=== PATIENT | female | born 1960 | race Hispanic/Latino ===

== ENCOUNTER 2017-06-13 08:01 | Emergency (ER) | payer MEDICAID, OTHER ==
[2017-06-13 08:01] VITALS: BMI 17.3
--- NOTE | 2017-06-13 08:26 | C.PDOC ---
History Of Present Illness 57 year old female with a PMHx of Stroke, CVA, right hemiplegia, HTN, and slurred speech was referred to the ED from half-way for PEG tube malfunction for unknown duration. prison notes no other associated symptoms. As per old records, 16 Iranian G-Tube was placed in Jan 2017 by NIVIA Burnett. LIMITED DUE TO CLIN COND REFERRED FROM [facility] FOR PEG TUBE MALFXN. UNK DURATION. pmh including stroke/cva/ rt. hemiplegia/htn/slurred speech. NO OTHER ASSOC SX per old records 16 Iranian G-Tube REPLACED 01/[address] BURNETT EXAM NAD NONTOXIC ABD +PEG IN PLACE SOFT NT ND NO R/G SKIN ABD WALL OS CLEAN, NO ERYTHEMA, DC. NEURO CHRONIC SLURRED SPEECH, CONTRACTURES. AO3, INTERACTIVE APPROPRIATE REMAINDER NEG Time Seen by Provider: 06/13/17 08:15 Chief Complaint (Nursing): Medical Clearance History Per: Other (half-way) History/Exam Limitations: clinical condition Current Symptoms Are (Timing): Still Present Reports Recently: Treated By A Physician Recent travel outside of the [place]: No Additional History Per: Prior Records Past Medical History Reviewed: Historical Data, Nursing Documentation, Vital Signs Vital Signs: Last Vital Signs Temp 97.3 F L 06/13/17 08:04 Pulse 96 H 06/13/17 08:04 Resp 14 06/13/17 08:04 BP 102/71 06/13/17 08:04 Pulse Ox 95 06/13/17 10:03 - Medical History PMH: Anxiety, Dementia, Depression, HTN, Hypercholesterolemia, Hyperlipidemia, TIA - [facility] Procedures CHANGE FEEDING DEVICE IN UP INTEST TRACT, BLOWER BLAST FURNACE APPROACH (11/14/16) GAIT TRAINING/FUNCTIONAL AMBULATION TREATMENT USING ORTHOSIS (07/07/16) HOME MANAGEMENT TREATMENT USING ASSIST EQUIPMENT (07/07/16) INSERTION OF FEEDING DEVICE INTO STOMACH, PERC APPROACH (11/14/16) INTRODUCE OTH THROMBOLYTIC IN PERIPH VEIN, PERC (11/14/16) INTRODUCTION OF NUTRITIONAL INTO UP GI, VIA OPENING (11/14/16) THERAPEUTIC EXERCISE TREATMENT OF MUSCULOSK LOW BACK/LE (07/07/16) Family History: States: Unknown Family Hx - Social History Hx Alcohol Use: No Hx Substance Use: No - Immunization History Hx Tetanus Toxoid Vaccination: No Hx Influenza Vaccination: Yes Hx Pneumococcal Vaccination: No Review Of Systems Review Of Systems: ROS cannot be obtained secondary to pt's inabilty to answer questions. (due to patient's clinical condition) Physical Exam - Physical Exam Appears: Non-toxic, No Acute Distress Skin: Warm, Dry, No Rash, Other (abdominal wall is clean, no erythema, no discharge) Head: Atraumatic, No Tenderness Eye(s): bilateral: Normal Inspection, PERRL, EOMI Oral Mucosa: Moist Neck: Supple Chest: Symmetrical, No Deformity Cardiovascular: Rhythm Regular, No Murmur Respiratory: No Rales, No Rhonchi, No Wheezing, Other (clear to auscultation bilaterally) Gastrointestinal/Abdominal: Soft, No Tenderness, No Distention, No Guarding, No Rebound, Other (PEG tube in place) Extremity: Capillary Refill (< 2 seconds) Neurological/Psych: Oriented x3, No Normal Speech (chronic slurred speech), Other (chronic contractures, interactive, and appropriate) ED Course And Treatment O2 Sat by Pulse Oximetry: 95 (RA) Pulse Ox Interpretation: Normal - Physician Consult Information Time Consulting Physician Contacted: 09:05 Physician Contacted: Fazal Bynum Progress - Re-Evaluation Re-evaluation Note: 06/13/17 08:46 PER RN HANSEN PEG +FLUSHES AND WITHDRAWS WO DIFF. NO LEAKAGE W GRAVITY FLUSH. PT TOLERATED WELL D/W [facility] RN: STATES W INTERMIT LEAKING AT PORT SITE WHEN TRIES TO DO FEEDINGS W GRAVITY. LAST FEEDING LAST NIGHT D/W PMD, CONSULT DR BYNUM WILL ADMIT PRN 06/13/17 09:03 D/W DR ANNE C/F DR BYNUM, WILL EVAL IN ER 06/13/17 10:02 SP PEG CHANGE W 16F BY DR ANNE. CLEARED FOR DC TO [facility] 06/13/17 10:04 PMD NOTIFIED - Data Reviewed Data Reviewed: Old records - Continuity of Care Discussed patient case with:: Patient, PMD Discussed pt. case with professional housing consultant/specialty: Gastroenterology Disposition Counseled Patient/Family Regarding: Diagnosis, Need For Followup - Disposition Referrals: Yakov Montgomery MD [Family Provider] - Disposition: HOME/ ROUTINE Disposition Time: 10:02 Condition: IMPROVED Instructions: Percutaneous Endoscopic Gastrostomy Insertion (GEN) Forms: [employer] (Jordanian) - Clinical Impression Clinical Impression: PEG tube malfunction - Scribe Statement The provider has reviewed the documentation as recorded by the Scribe Binta Narvaez All medical record entries made by the Scribe were at my direction and personally dictated by me. I have reviewed the chart and agree that the record accurately reflects my personal performance of the history, physical exam, medical decision making, and the department course for this patient. I have also personally directed, reviewed, and agree with the discharge instructions and disposition.
[2017-06-13 10:07] VITALS: RESP 16; O2SAT 97
--- NOTE | 2017-06-13 10:08 | PCM.PROC ---
Procedures Attestation:: I certify that I have explained the specified Operation(s) or Procedure(s), risks, benefits and reasonable alternatives to the Patient and/or other person responsible. The opportunity was given to ask questions and all questions answered - Feeding Tube Replacement Type of Tube: gastrostomy Insertion Site Prior to Procedure: clean Tube Used for Reinsertion: Bard Eritrean Tube Size (F): 16 Balloon Size (mis): 5 Tube Secured by: attachment device Patient Tolerated Procedure: well, no complications
--- NOTE | 2017-06-13 10:12 | CP.PCM.CON ---
<Corinne Martinez - Last Filed: 06/13/17 10:12> History of Present Illness - History of Present Illness History of Present Illness: GI Fellow PGY4 Consult Note This is a 57yF with a PMHX of HTN, TIA, left basal ganglia/thalamic ischemic stroke that was treated with tPa, and was subsequently complicated by hemorrhagic conversion. Pt ended up having right sided hemiplegia, contractures , aphasia, dysphagia requiring peg tube placement for feeding. Pt had initial feeding tube placed by IR CT guided gastrostomy tube due to difficulty passing EGD scope from mouth contracture even with mouth guard in place. Initial gastrostomy tube placed December 2016 and exchanged at bedside in January 2017 with 16Fr. Pt now sent from [place] with malfunctioning PEG tube with leakage of TF due to tubing breakdown. No signs of infection around PEG site. ROS: Unable to be obtained due to aphasia PMHX: As stated in HPI PSHX: Unable to be obtained due to aphasia SHX: Unable to be obtained due to aphasia FHx: Unable to be obtained due to aphasia Past Patient History - Infectious Disease Hx of Infectious Diseases: None - Tetanus Immunizations Tetanus Immunization: Unknown - Past Medical History & Family History Past Medical History?: Yes - Past Social History Smoking Status: Former Smoker - CARDIAC Hx Hypercholesterolemia: Yes Hx Hypertension: Yes - PULMONARY Hx Chronic Obstructive Pulmonary Disease (COPD): No Hx Pneumonia: No - NEUROLOGICAL Hx Dementia: Yes Hx Transient Ischemic Attacks (TIA): Yes - HEENT Hx HEENT Problems: Yes (wears eyeglasses) - RENAL Hx Chronic Kidney Disease: No - ENDOCRINE/METABOLIC Hx Hypothyroidism: No - HEMATOLOGICAL/ONCOLOGICAL Hx Human Immunodeficiency Virus (HIV): No - INTEGUMENTARY Hx Dermatological Problems: No - MUSCULOSKELETAL/RHEUMATOLOGICAL Hx Arthritis: No Hx Rheumatoid Arthritis: No - GASTROINTESTINAL Hx Gastroesophageal Reflux: No - GENITOURINARY/GYNECOLOGICAL Hx Genitourinary Disorders: No - PSYCHIATRIC Hx Anxiety: Yes Hx Depression: Yes Hx Substance Use: No - SURGICAL HISTORY Hx Surgeries: Yes Other/Comment: G-tube insertion - ANESTHESIA Hx Anesthesia Reactions: No Hx Malignant Hyperthermia: No Meds Allergies/Adverse Reactions: Allergies Allergy/AdvReac Type Severity Reaction Status Date / Time atorvastatin calcium AdvReac PAIN Verified 11/15/16 10:52 [From Lipitor] Physical Exam - Constitutional Appears: Non-toxic, No Acute Distress - Head Exam Head Exam: ATRAUMATIC, NORMAL INSPECTION, NORMOCEPHALIC - Eye Exam Eye Exam: EOMI, Normal appearance, PERRL Pupil Exam: PERRL - ENT Exam ENT Exam: Mucous Membranes Moist, Normal Exam - Neck Exam Neck exam: Positive for: Full Rom - Respiratory Exam Respiratory Exam: Clear to Auscultation Bilateral, NORMAL BREATHING PATTERN - Cardiovascular Exam Cardiovascular Exam: RRR - GI/Abdominal Exam GI & Abdominal Exam: Normal Bowel Sounds, Soft. absent: Organomegaly, Tenderness Additional comments: PEG site clean no erythema - Rectal Exam Rectal Exam: Deferred - Extremities Exam Extremities exam: Positive for: normal inspection. Negative for: pedal edema - Back Exam Back exam: NORMAL INSPECTION - Neurological Exam Neurological exam: Alert - Psychiatric Exam Psychiatric exam: Normal Affect, Normal Mood - Skin Skin Exam: Dry, Intact, Normal Color, Warm Results - Vital Signs Recent Vital Signs: Last Vital Signs Temp 98.0 F 06/13/17 10:06 Pulse 88 06/13/17 10:06 Resp 16 06/13/17 10:06 BP 106/68 06/13/17 10:06 Pulse Ox 97 06/13/17 10:06 Assessment & Plan - Assessment and Plan (Free Text) Assessment: This is a 57yF with pmhx of CVA and dysphagia s/p PEG. 1. PEG tube malfunction Plan: -Pt's PEG tubing had broken down with leakage of tube feedings. No signs of infection or erythema. Pt's PEG was exchanged at bedside with 16Fr with no complications -Can resume tube feedings -Discussed with ER attending -Pt can be discharged back to [facility] from [facility] perspective <Sofy Conde MD - Last Filed: 06/13/17 12:14> Results - Vital Signs Recent Vital Signs: Last Vital Signs Temp 98.0 F 06/13/17 10:06 Pulse 88 06/13/17 10:06 Resp 16 06/13/17 10:06 BP 106/68 06/13/17 10:06 Pulse Ox 97 06/13/17 10:06 Attending/Attestation - Attestation I have personally seen and examined this patient.: Yes I have fully participated in the care of the patient.: Yes I have reviewed all pertinent clinical information: Yes Notes (Text): 06/13/17 12:11 patient seen at bedside. This is a 57 yr old F with PMH of CVA and dysphagia s/ p PEG placement in December 2016 and then PEG exchange in January 2017 now sent from [facility] for PEG malfunction. Tube leakage with PEG changed at bedside with 16 Fr. Resume tube feedings. No induration/ erytyema or infection at site of stoma. Aspiration precautions. Pt can be discharged back to [facility] from GI perspective
[2017-06-13 12:29] VITALS: BP 105/71; PULSE 86; TEMP 97.9
== END 2017-06-13 13:41 | disposition home or self-care (01) ==
LOC: C.ER 08:01
DX: K94.23 Gastrostomy malfunction (principal); Y84.8 Other medical procedures as the cause of abnormal reaction of the patient, or of later complication, without mention of misadventure at the time of the procedure

== ENCOUNTER 2018-04-06 12:04 | Emergency (ER) | payer OTHER ==
[2018-04-06 12:05] VITALS: BMI 17.3
[2018-04-06 13:00] VITALS: O2SAT 97
--- NOTE | 2018-04-06 13:53 | C.PDOC ---
History Of Present Illness 58 y/o female, with PMHx of CVA with right side weakness, is sent to ED from longterm for peg tube replacement. Peg tube was dislodged and gutierrez catheter has been placed temporarily. No other complaints at this time. Time Seen by Provider: 04/06/18 13:22 Chief Complaint (Nursing): GI Problem History Per: Patient History/Exam Limitations: no limitations Past Medical History Reviewed: Historical Data, Nursing Documentation, Vital Signs Vital Signs: Last Vital Signs Temp 97.7 F 04/06/18 12:17 Pulse 82 04/06/18 12:21 Resp 20 04/06/18 12:21 BP 98/69 L 04/06/18 12:21 Pulse Ox 97 04/06/18 12:21 - Medical History PMH: Anemia, Anxiety, Dementia, Depression, HTN, Hypercholesterolemia, Hyperlipidemia, TIA Denies: Arthritis, CHF, COPD, HIV, Hypothyroidism, Pneumonia, Chronic Kidney Disease, Rheumatoid Arthritis - [facility] Procedures CHANGE FEEDING DEVICE IN UP INTEST TRACT, MANAGER LEARNING APPROACH (11/14/16) GAIT TRAINING/FUNCTIONAL AMBULATION TREATMENT USING ORTHOSIS (07/07/16) HOME MANAGEMENT TREATMENT USING ASSIST EQUIPMENT (07/07/16) INSERTION OF FEEDING DEVICE INTO STOMACH, PERC APPROACH (11/14/16) INTRODUCE OTH THROMBOLYTIC IN PERIPH VEIN, PERC (11/14/16) INTRODUCTION OF NUTRITIONAL INTO UP GI, VIA OPENING (11/14/16) THERAPEUTIC EXERCISE TREATMENT OF MUSCULOSK LOW BACK/LE (07/07/16) Family History: States: Unknown Family Hx - Social History Hx Alcohol Use: No Hx Substance Use: No - Immunization History Hx Tetanus Toxoid Vaccination: No Hx Influenza Vaccination: Yes Hx Pneumococcal Vaccination: No Review Of Systems Except As Marked, All Systems Reviewed And Found Negative. Constitutional: Negative for: Fever, Chills Cardiovascular: Negative for: Chest Pain Respiratory: Negative for: Shortness of Breath Gastrointestinal: Negative for: Nausea, Abdominal Pain, Diarrhea Physical Exam - Physical Exam Appears: Non-toxic, No Acute Distress, Chronically Ill, Other (white thin female) Skin: Normal Color, Warm, Dry Head: Atraumatic, Normacephalic Eye(s): bilateral: Normal Inspection Oral Mucosa: Moist Neck: Normal ROM, Supple Cardiovascular: Rhythm Regular, No Murmur Respiratory: Normal Breath Sounds, No Rales, No Rhonchi, No Wheezing Gastrointestinal/Abdominal: Soft, No Tenderness, No Guarding, No Rebound, Other (gutierrez catheter intact in LUQ stoma, good placement) Back: No CVA Tenderness Extremity: Other (right side weakness) Neurological/Psych: Oriented x3, Normal Speech ED Course And Treatment O2 Sat by Pulse Oximetry: 97 Pulse Ox Interpretation: Normal Reevaluation Time: 14:15 Reassessment Condition: Improved (fresh PEG tube placed by GI Fellow, ok to return to [facility]) Medical Decision Making Medical Decision Making: Case discussed with Dr. Linn Conde who states GI fellow will replace the peg tube. Disposition Doctor Will See Patient In The: Office Counseled Patient/Family Regarding: Studies Performed, Diagnosis - Disposition Disposition: OTHER INSTITUTION Disposition Time: 14:16 Condition: GOOD Forms: [facility] (Haitian) - Clinical Impression Clinical Impression: PEG tube malfunction - Scribe Statement The provider has reviewed the documentation as recorded by the Scribe KP All medical record entries made by the Scribe were at my direction and personally dictated by me. I have reviewed the chart and agree that the record accurately reflects my personal performance of the history, physical exam, medical decision making, and the department course for this patient. I have also personally directed, reviewed, and agree with the discharge instructions and disposition.
--- NOTE | 2018-04-06 14:23 | PCM.PROC ---
<Panfilo Avendano - Last Filed: 04/06/18 14:19> Procedures Attestation:: I certify that I have explained the specified Operation(s) or Procedure(s), risks, benefits and reasonable alternatives to the Patient and/or other person responsible. The opportunity was given to ask questions and all questions answered - Feeding Tube Replacement Type of Tube: gastrostomy Insertion Site Prior to Procedure: clean Tube Used for Reinsertion: other ([employer] EndoVive) Tajik Tube Size (F): 20 Verification of Placement: auscultation, other (gastric fluid identified on aspiration from PEG tube with syringe) Tube Secured by: other (bumper) Patient Tolerated Procedure: well, no complications Additional comments: Inadvertent removal of PEG tube at [facility]. [facility] staff replaced with 18F gutierrez catheter. Gutierrez was removed and replaced by 20F [employer] EndoVive replacement tube and secured at the skin at 4cm. Discussed with nursing staff to administer antibiotic ointment around the site and cover with gauze. Please instruct [facility] to keep site clean with daily antibiotic ointment administration. Exchange discussed with emergency room attending. <Fazal Bynum - Last Filed: 04/06/18 14:37> Attending/Attestation - Attestation I have fully participated in the care of the patient.: Yes I have reviewed all pertinent clinical information, including history, physical exam and plan: Yes Notes (Text): 04/06/18 14:36 s/p bedside gastrostomy tube replacement. May begin use of PEG for feeding/medication immediately. Flush PEG with 30 cc water q 8 hours, perform dressing change daily.
[2018-04-06] MEDS ORDERED: Bacitracin 500 Units/gm Oint Foilpak UD TOP ONE (14:25)
[2018-04-06] MEDS ORDERED: Bacitracin 500 Units/gm Oint Foilpak UD ONE (14:48)
[2018-04-06 15:12] VITALS: BP 120/75; PULSE 99; RESP 18; TEMP 97.9
== END 2018-04-06 17:05 | disposition designated cancer center or children's hospital (05) ==
LOC: C.ER 12:04
DX: K94.23 Gastrostomy malfunction (principal); Y84.9 Medical procedure, unspecified as the cause of abnormal reaction of the patient, or of later complication, without mention of misadventure at the time of the procedure

== ENCOUNTER 2018-04-06 23:42 | Observation (INO) | payer OTHER ==
[2018-04-06 23:42] VITALS: BMI 17.3
--- NOTE | 2018-04-07 00:39 | C.PDOC ---
History Of Present Illness 58 year old female sent in from [facility] for the 2nd time today after he peg tube fell out. Catheter was inserted into stoma by [facility]. Patient has no other complaints at this time. Time Seen by Provider: 04/06/18 23:48 Chief Complaint (Nursing): GI Problem History Per: Patient History/Exam Limitations: no limitations Onset/Duration Of Symptoms: Hrs Current Symptoms Are (Timing): Still Present Recent travel outside of the [place]: No Additional History Per: Custodial Past Medical History Reviewed: Historical Data, Nursing Documentation, Vital Signs Vital Signs: Last Vital Signs Temp 97.6 F 04/06/18 23:45 Pulse 79 04/06/18 23:45 Resp 16 04/06/18 23:45 BP 110/76 04/06/18 23:45 Pulse Ox 96 04/06/18 23:45 - Medical History PMH: Anemia, Anxiety, Dementia, Depression, HTN, Hypercholesterolemia, Hyperlipidemia, TIA Denies: Arthritis, CHF, COPD, HIV, Hypothyroidism, Pneumonia, Chronic Kidney Disease, Rheumatoid Arthritis - [facility] Procedures CHANGE FEEDING DEVICE IN UP INTEST TRACT, RESOURCE ANALYST APPROACH (11/14/16) GAIT TRAINING/FUNCTIONAL AMBULATION TREATMENT USING ORTHOSIS (07/07/16) HOME MANAGEMENT TREATMENT USING ASSIST EQUIPMENT (07/07/16) INSERTION OF FEEDING DEVICE INTO STOMACH, PERC APPROACH (11/14/16) INTRODUCE OTH THROMBOLYTIC IN PERIPH VEIN, PERC (11/14/16) INTRODUCTION OF NUTRITIONAL INTO UP GI, VIA OPENING (11/14/16) THERAPEUTIC EXERCISE TREATMENT OF MUSCULOSK LOW BACK/LE (07/07/16) Family History: States: Unknown Family Hx - Social History Hx Alcohol Use: No Hx Substance Use: No - Immunization History Hx Tetanus Toxoid Vaccination: No Hx Influenza Vaccination: Yes Hx Pneumococcal Vaccination: No Review Of Systems Constitutional: Negative for: Fever, Chills Cardiovascular: Negative for: Chest Pain, Palpitations Respiratory: Negative for: Cough, Shortness of Breath Gastrointestinal: Negative for: Nausea, Vomiting Genitourinary: Negative for: Dysuria, Hematuria Neurological: Negative for: Weakness, Numbness Physical Exam - Physical Exam Appears: Non-toxic Skin: Normal Color, Warm, Dry Head: Atraumatic, Normacephalic Eye(s): bilateral: Normal Inspection Oral Mucosa: Moist Neck: Normal, Supple Chest: Symmetrical, No Tenderness Cardiovascular: Rhythm Regular Respiratory: Normal Breath Sounds, No Rales, No Rhonchi, No Wheezing Gastrointestinal/Abdominal: Soft, No Tenderness, Other (Wiggins cath in abdominal stoma) Back: No CVA Tenderness Neurological/Psych: Oriented x3, Normal Speech, Other (Chronic right sided paralysis and spasticity) ED Course And Treatment O2 Sat by Pulse Oximetry: 96 (Room air) Pulse Ox Interpretation: Normal Medical Decision Making Medical Decision Makinnd time today PEG tube dislodged had been replaced by GI fellow earlier today with good fxn. Suspect being inappropriately pulled out @ [facility] Pending 2nd PEG tube replacement in AM Disposition Doctor Will See Patient In The: Hospital Counseled Patient/Family Regarding: Studies Performed, Diagnosis - Disposition Disposition: HOSPITALIZED Disposition Time: 00:39 Condition: GOOD - Clinical Impression Clinical Impression: PEG tube malfunction - Scribe Statement The provider has reviewed the documentation as recorded by the Scribe Charlie Guerra All medical record entries made by the Scribe were at my direction and personally dictated by me. I have reviewed the chart and agree that the record accurately reflects my personal performance of the history, physical exam, medical decision making, and the department course for this patient. I have also personally directed, reviewed, and agree with the discharge instructions and disposition.
--- NOTE | 2018-04-07 07:53 | CP.PCM.CON ---
Addendum entered and electronically signed by Panfilo Avendano DO 04/07/18 14:52: PEG consent obtained from the patient's , Nader. He agrees to move forward with endoscopic placement of PEG tube and agrees to rescind the DNR for the procedure and yosvany-procedure recovery. 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 An 18F gutierrez catheter was in place at the time of examination yesterday and exchanged for a 20F [employer] EndoVive replacement PEG secured at 4cm from the skin. The patient was discharged to [place] but returned again early this morning for second inadvertent removal of PEG tube. Again, a gutierrez catheter was placed however on attempt to exchange for bedside EndoVive PEG tube, resistance was met and tube could not be successfully placed. The patient denies any complaints presently. 12 system ROS performed and negative but limited given PMHx: See HPI PSHx: No known surgical history FHx: No significant family history Social: Prior tobacco user, No history of EtOH or illicit drug use Endo: PEG placement 12/2016 Past Patient History - Infectious Disease Hx of Infectious Diseases: None - Tetanus Immunizations Tetanus Immunization: Unknown - Past Medical History & Family History Past Medical History?: Yes - Past Social History Smoking Status: Former Smoker - CARDIAC Hx Congestive Heart Failure: No Hx Hypercholesterolemia: Yes Hx Hypertension: Yes - PULMONARY Hx Chronic Obstructive Pulmonary Disease (COPD): No Hx Pneumonia: No - NEUROLOGICAL Hx Dementia: Yes Hx Transient Ischemic Attacks (TIA): Yes - HEENT Hx HEENT Problems: Yes (wears eyeglasses) - RENAL Hx Chronic Kidney Disease: No - ENDOCRINE/METABOLIC Hx Hypothyroidism: No - HEMATOLOGICAL/ONCOLOGICAL Hx Anemia: Yes Hx Human Immunodeficiency Virus (HIV): No - INTEGUMENTARY Hx Dermatological Problems: No - MUSCULOSKELETAL/RHEUMATOLOGICAL Hx Arthritis: No Hx Rheumatoid Arthritis: No - GASTROINTESTINAL Hx Gastroesophageal Reflux: No - GENITOURINARY/GYNECOLOGICAL Hx Genitourinary Disorders: No - PSYCHIATRIC Hx Anxiety: Yes Hx Depression: Yes Hx Substance Use: No - SURGICAL HISTORY Hx Surgeries: Yes Other/Comment: G-tube insertion - ANESTHESIA Hx Anesthesia Reactions: No Hx Malignant Hyperthermia: No Meds Allergies/Adverse Reactions: Allergies Allergy/AdvReac Type Severity Reaction Status Date / Time atorvastatin calcium AdvReac PAIN Verified 04/06/18 23:47 [From Lipitor] Physical Exam - Constitutional Appears: Non-toxic, No Acute Distress - Eye Exam Eye Exam: PERRL - ENT Exam ENT Exam: Mucous Membranes Dry - Respiratory Exam Respiratory Exam: Clear to Auscultation Bilateral. absent: Rales, Rhonchi, Wheezes - Cardiovascular Exam Cardiovascular Exam: RRR, +S1, +S2 - GI/Abdominal Exam GI & Abdominal Exam: Normal Bowel Sounds, Soft. absent: Distended, Firm, Guarding, Organomegaly, Rigid, Tenderness Additional comments: prior PEG site clean, no drainage noted - Extremities Exam Extremities exam: Negative for: pedal edema Additional comments: contractures of extremities - Neurological Exam Neurological exam: Alert Additional comments: oriented to person and place - Psychiatric Exam Psychiatric exam: Anxious - Skin Skin Exam: Dry, Warm Results - Vital Signs Recent Vital Signs: Last Vital Signs Temp 98 F 04/07/18 05:58 Pulse 86 04/07/18 05:58 Resp 18 04/07/18 05:58 BP 106/72 04/07/18 05:58 Pulse Ox 97 04/07/18 05:58 - Labs Result Diagrams: 04/07/18 09:23 04/07/18 09:23 Assessment & Plan - Assessment and Plan (Free Text) Assessment: Patient is a 58yo female with PMHx significant for multiple CVA and prior tPA administration complicated by hemorrhagic conversion who presented to the ED yesterday following inadvertent PEG tube removal -Inadvertent PEG removal -Prior CVA, dysphagia Plan: -Recommend endoscopic replacement of PEG tube as previous tract cannot be accessed bedside -NPO -Will contact patient's to discuss consent for procedure - Date & Time Date: 04/07/18 Time: 07:00 <Sofy Conde - Last Filed: 04/07/18 15:19> Results - Vital Signs Recent Vital Signs: Last Vital Signs Temp 98.5 F 04/07/18 11:12 Pulse 88 04/07/18 11:12 Resp 18 04/07/18 11:12 BP 117/80 04/07/18 11:12 Pulse Ox 98 04/07/18 11:12 - Labs Result Diagrams: 04/07/18 09:23 04/07/18 09:23 Labs: Laboratory Results - last 24 hr 04/07/18 04/07/18 04/07/18 09:23 09:23 09:23 WBC 7.3 RBC 3.90 Hgb 12.4 Hct 36.8 MCV 94.4 MCH 31.8 H MCHC 33.7 RDW 13.6 Plt Count 154 MPV 10.5 Neut % (Auto) 66.5 Lymph % (Auto) 23.8 Wake % (Auto) 6.9 Eos % (Auto) 1.9 Baso % (Auto) 0.9 Neut # (Auto) 4.9 Lymph # (Auto) 1.7 Wake # (Auto) 0.5 Eos # (Auto) 0.1 Baso # (Auto) 0.1 PT 11.7 INR 1.1 Sodium 143 Potassium 4.9 Chloride 106 Carbon Dioxide 28 Anion Gap 15 BUN 23 H Creatinine 0.6 L Est GFR ( Amer) > 60 Est GFR (Non-Af Amer) > 60 Random Glucose 92 Calcium 10.1 Total Bilirubin 1.1 AST 31 ALT 33 Alkaline Phosphatase 73 Total Protein 8.0 Albumin 4.4 Globulin 3.5 Albumin/Globulin Ratio 1.3 Attending/Attestation - Attestation I have personally seen and examined this patient.: Yes I have fully participated in the care of the patient.: Yes I have reviewed all pertinent clinical information: Yes Notes (Text): 04/07/18 12:44 This is a 58 yo female with PMHx significant for multiple CVA and prior tPA administration complicated by hemorrhagic conversion who presented to the ED yesterday following inadvertent PEG tube removal with endoscopic replacement of PEG tube as previous tract cannot be accessed bedside. 20 Fr peg placed endoscopy guided through the same stoma. May use PEG today for feeds and meds. Thank you for letting us participate in the care of your patient 04/07/18 15:18
[2018-04-07 09:34] LABS: BASO # 0.1 K/uL (0.0-0.2); BASO % 0.9 % (0.0-2.0); EOS # 0.1 K/uL (0.0-0.7); EOS % 1.9 % (0.0-4.0); HEMOGLOBIN 12.4 g/dL (11.0-16.0); LYMPH # 1.7 K/uL (1.0-4.3); LYMPH % 23.8 % (20.0-40.0); MEAN CELL VOLUME 94.4 fL (81.0-99.0); MEAN CORPUSCULAR HEMOGLOBIN 31.8 pg (27.0-31.0); MEAN CORPUSCULAR HGB CONC 33.7 g/dL (33.0-37.0); MEAN PLATELET VOLUME 10.5 fL (7.2-11.7); MONO # 0.5 K/uL (0.0-0.8); MONO % 6.9 % (0.0-10.0); NEUT # 4.9 K/uL (1.8-7.0); NEUT % 66.5 % (50.0-75.0); RBC 3.9 Mil/uL (3.80-5.20); RED CELL DISTRIBUTION WIDTH 13.6 % (11.5-14.5); WHITE BLOOD COUNT 7.3 K/uL (4.8-10.8)
[2018-04-07 09:48] LABS: ALB/GLOB RATIO 1.3 (1.0-2.1); ALBUMIN 4.4 g/dL (3.5-5.0); BLOOD UREA NITROGEN 23 mg/dL (7-17); CALCIUM 10.1 mg/dl (8.6-10.4); GFR NON-AFRICAN AMERICAN > 60
[2018-04-07 09:52] LABS: INR 1.1; PROTHROMBIN TIME 11.7 SECONDS (9.7-12.2)
[2018-04-07 09:54] LABS: ALT/SGPT 33 U/L (9-52); AST/SGOT 31 U/L (14-36)
[2018-04-07] MEDS ORDERED: Propofol 10 mg/ml Inj (20 ML) ONE ×2 (14:53→15:06)
[2018-04-07] MEDS ORDERED: Lidocaine Hydrochloride 5 ML INJ ONE (14:54)
--- NOTE | 2018-04-07 14:55 | CP.PCM.HP ---
Past Patient History - Infectious Disease Hx of Infectious Diseases: None - Tetanus Immunizations Tetanus Immunization: Unknown - Past Medical History & Family History Past Medical History?: Yes - Past Social History Smoking Status: Former Smoker - CARDIAC Hx Congestive Heart Failure: No Hx Hypercholesterolemia: Yes Hx Hypertension: Yes - PULMONARY Hx Chronic Obstructive Pulmonary Disease (COPD): No Hx Pneumonia: No - NEUROLOGICAL Hx Dementia: Yes Hx Transient Ischemic Attacks (TIA): Yes - HEENT Hx HEENT Problems: Yes (wears eyeglasses) - RENAL Hx Chronic Kidney Disease: No - ENDOCRINE/METABOLIC Hx Hypothyroidism: No - HEMATOLOGICAL/ONCOLOGICAL Hx Anemia: Yes Hx Human Immunodeficiency Virus (HIV): No - INTEGUMENTARY Hx Dermatological Problems: No - MUSCULOSKELETAL/RHEUMATOLOGICAL Hx Arthritis: No Hx Rheumatoid Arthritis: No - GASTROINTESTINAL Hx Gastroesophageal Reflux: No - GENITOURINARY/GYNECOLOGICAL Hx Genitourinary Disorders: No - PSYCHIATRIC Hx Anxiety: Yes Hx Depression: Yes Hx Substance Use: No - SURGICAL HISTORY Hx Surgeries: Yes Other/Comment: G-tube insertion - ANESTHESIA Hx Anesthesia Reactions: No Hx Malignant Hyperthermia: No Meds Allergies/Adverse Reactions: Allergies Allergy/AdvReac Type Severity Reaction Status Date / Time atorvastatin calcium AdvReac PAIN Verified 04/06/18 23:47 [From Lipitor] Physical Exam - Constitutional Appears: Well - Head Exam Head Exam: ATRAUMATIC, NORMAL INSPECTION, NORMOCEPHALIC - Eye Exam Eye Exam: EOMI, Normal appearance, PERRL Pupil Exam: NORMAL ACCOMODATION, PERRL - ENT Exam ENT Exam: Mucous Membranes Moist, Normal Exam - Neck Exam Neck exam: Positive for: Normal Inspection - Respiratory Exam Respiratory Exam: Decreased Breath Sounds - Cardiovascular Exam Cardiovascular Exam: REGULAR RHYTHM, +S1, +S2 - GI/Abdominal Exam GI & Abdominal Exam: Diminished Bowel Sounds, Soft - Rectal Exam Rectal Exam: Deferred Results - Vital Signs Recent Vital Signs: Last Vital Signs Temp 98 F 04/07/18 12:53 Pulse 69 04/07/18 12:53 Resp 18 04/07/18 12:53 BP 106/69 04/07/18 12:53 Pulse Ox 98 04/07/18 12:53 - Labs Result Diagrams: 04/07/18 09:23 04/07/18 09:23 Labs: Laboratory Results - last 24 hr 04/07/18 04/07/18 04/07/18 09:23 09:23 09:23 WBC 7.3 RBC 3.90 Hgb 12.4 Hct 36.8 MCV 94.4 MCH 31.8 H MCHC 33.7 RDW 13.6 Plt Count 154 MPV 10.5 Neut % (Auto) 66.5 Lymph % (Auto) 23.8 Mcculloch % (Auto) 6.9 Eos % (Auto) 1.9 Baso % (Auto) 0.9 Neut # (Auto) 4.9 Lymph # (Auto) 1.7 [place]och # (Auto) 0.5 Eos # (Auto) 0.1 Baso # (Auto) 0.1 PT 11.7 INR 1.1 Sodium 143 Potassium 4.9 Chloride 106 Carbon Dioxide 28 Anion Gap 15 BUN 23 H Creatinine 0.6 L Est GFR ( Amer) > 60 Est GFR (Non-Af Amer) > 60 Random Glucose 92 Calcium 10.1 Total Bilirubin 1.1 AST 31 ALT 33 Alkaline Phosphatase 73 Total Protein 8.0 Albumin 4.4 Globulin 3.5 Albumin/Globulin Ratio 1.3
[2018-04-07] MEDS ORDERED: Lactated Ringer's 500 ML IV ONE (15:12)
[2018-04-07] MEDS ORDERED: POLYETHYLENE GLYCOL 3350 17 GM/Dose PACKET PO PRN (16:08)
[2018-04-07] MEDS: Ferrous Sulfate 300 mg/5 mL Liq UD PO SCH (18:00)
[2018-04-07] MEDS: levETIRAcetam 100 mg/ml (5ml) Oral Syringe PEG SCH ×2 (18:00→22:35)
[2018-04-08] MEDS ORDERED: Influenza Vaccine 60 MCG/0.5 ML SYR (3 yr & up) IM ONE ×2 (10:00→14:00)
[2018-04-08] MEDS ORDERED: Pneumococcal 23-Valent Vaccine IM ONE (10:00)
[2018-04-08] MEDS: levETIRAcetam 100 mg/ml (5ml) Oral Syringe PEG SCH ×2 (10:58→18:00)
[2018-04-08] MEDS: Ferrous Sulfate 300 mg/5 mL Liq UD PO SCH ×3 (10:59→18:00)
--- NOTE | 2018-04-08 15:15 | CP.PCM.PN ---
Subjective - Date & Time of Evaluation Date of Evaluation: 04/08/18 Time of Evaluation: 08:15 - Subjective Subjective: clinically same Objective - Vital Signs/Intake and Output Vital Signs (last 24 hours): Temp Pulse Resp BP Pulse Ox 97.8 F 85 20 119/80 94 L 04/08/18 08:00 04/08/18 08:00 04/08/18 08:00 04/08/18 11:00 04/08/18 08:00 Intake and Output: 04/08/18 04/08/18 06:59 18:59 Intake Total 0 Balance 0 - Medications Medications: Current Medications Ascorbic Acid (Vitamin C 500 Mg Tab) 500 mg PO DAILY [facility] Last Admin: 04/08/18 11:00 Dose: 500 mg Aspirin (Aspirin Chewable) 81 mg PEG DAILY [facility] Last Admin: 04/08/18 10:59 Dose: 81 mg Cyclobenzaprine HCl (Flexeril) 5 mg PO TID [facility] Last Admin: 04/08/18 11:00 Dose: 5 mg Docusate Sodium (Colace) 100 mg PEG BID [facility] Last Admin: 04/08/18 10:59 Dose: 100 mg Ferrous Sulfate (Feosol Liq) 300 mg PO TID [facility] Last Admin: 04/08/18 14:49 Dose: 300 mg Heparin Sodium (Porcine) (Heparin) 5,000 units SC Q12H [facility] Last Admin: 04/08/18 11:00 Dose: 5,000 units Hydralazine HCl (Apresoline) 10 mg PO Q6 PRN PRN Reason: .SBP>160, .DBP>110 Levetiracetam (Keppra) 500 mg PEG BID [facility] Last Admin: 04/08/18 10:58 Dose: 500 mg Metoprolol Tartrate (Lopressor) 25 mg PEG BID [facility] Last Admin: 04/08/18 11:00 Dose: 25 mg Polyethylene Glycol (Miralax) 17 gm PO DAILY PRN PRN Reason: Constipation Zinc Sulfate (Zinc Sulfate 220 Mg Cap) 220 mg PO DAILY [facility] Last Admin: 04/08/18 10:59 Dose: 220 mg - Labs Labs: 04/07/18 09:23 04/07/18 09:23 PT 11.7 SECONDS (9.7-12.2) 04/07/18 09:23 INR 1.1 04/07/18 09:23 - Constitutional Appears: Well - Head Exam Head Exam: ATRAUMATIC, NORMAL INSPECTION, NORMOCEPHALIC - Eye Exam Eye Exam: EOMI, Normal appearance, PERRL Pupil Exam: NORMAL ACCOMODATION, PERRL - ENT Exam ENT Exam: Mucous Membranes Moist, Normal Exam - Neck Exam Neck Exam: Full ROM, Normal Inspection. absent: Lymphadenopathy - Respiratory Exam Respiratory Exam: Decreased Breath Sounds - Cardiovascular Exam Cardiovascular Exam: REGULAR RHYTHM, +S1, +S2 - GI/Abdominal Exam GI & Abdominal Exam: Soft, Diminished Bowel Sounds - Rectal Exam Rectal Exam: Deferred
[2018-04-09 07:36] LABS: BASO % 0.4 % (0.0-2.0); EOS # 0.1 K/uL (0.0-0.7); EOS % 1.7 % (0.0-4.0); HEMOGLOBIN 11.6 g/dL (11.0-16.0); LYMPH # 1.8 K/uL (1.0-4.3); LYMPH % 30.4 % (20.0-40.0); MEAN CELL VOLUME 93.8 fL (81.0-99.0); MEAN CORPUSCULAR HEMOGLOBIN 31.9 pg (27.0-31.0); MEAN PLATELET VOLUME 10.6 fL (7.2-11.7); MONO # 0.4 K/uL (0.0-0.8); MONO % 7.2 % (0.0-10.0); NEUT # 3.6 K/uL (1.8-7.0); NEUT % 60.3 % (50.0-75.0); RBC 3.63 Mil/uL (3.80-5.20); RED CELL DISTRIBUTION WIDTH 13.3 % (11.5-14.5); WHITE BLOOD COUNT 5.9 K/uL (4.8-10.8)
[2018-04-09 08:10] LABS: ALB/GLOB RATIO 1.3 (1.0-2.1); ALBUMIN 3.8 g/dL (3.5-5.0); ALT/SGPT 28 U/L (9-52); AST/SGOT 23 U/L (14-36); BLOOD UREA NITROGEN 19 mg/dL (7-17); CALCIUM 9.7 mg/dl (8.6-10.4); GFR NON-AFRICAN AMERICAN > 60
[2018-04-09] MEDS: Ferrous Sulfate 300 mg/5 mL Liq UD PO SCH ×3 (10:21→17:55)
[2018-04-09] MEDS: levETIRAcetam 100 mg/ml (5ml) Oral Syringe PEG SCH ×2 (10:21→17:55)
--- NOTE | 2018-04-09 14:26 | CP.PCM.PN ---
Subjective - Date & Time of Evaluation Date of Evaluation: 04/09/18 Time of Evaluation: 07:45 - Subjective Subjective: clinically same Objective - Vital Signs/Intake and Output Vital Signs (last 24 hours): Temp Pulse Resp BP Pulse Ox 98.4 F 86 20 125/76 99 04/09/18 08:00 04/09/18 08:00 04/09/18 08:00 04/09/18 10:21 04/09/18 08:00 Intake and Output: 04/09/18 04/09/18 06:59 18:59 Intake Total 325 430 Output Total 0 Balance 325 430 - Medications Medications: Current Medications Ascorbic Acid (Vitamin C 500 Mg Tab) 500 mg PO DAILY [facility] Last Admin: 04/09/18 10:21 Dose: 500 mg Aspirin (Aspirin Chewable) 81 mg PEG DAILY [facility] Last Admin: 04/09/18 10:21 Dose: 81 mg Cyclobenzaprine HCl (Flexeril) 5 mg PO TID [facility] Last Admin: 04/09/18 10:50 Dose: 5 mg Docusate Sodium (Colace) 100 mg PEG BID [facility] Last Admin: 04/09/18 10:21 Dose: 100 mg Ferrous Sulfate (Feosol Liq) 300 mg PO TID [facility] Last Admin: 04/09/18 10:21 Dose: 300 mg Heparin Sodium (Porcine) (Heparin) 5,000 units SC Q12H [facility] Last Admin: 04/09/18 10:50 Dose: 5,000 units Hydralazine HCl (Apresoline) 10 mg PO Q6 PRN PRN Reason: .SBP>160, .DBP>110 Levetiracetam (Keppra) 500 mg PEG BID [facility] Last Admin: 04/09/18 10:21 Dose: 500 mg Metoprolol Tartrate (Lopressor) 25 mg PEG BID [facility] Last Admin: 04/09/18 10:21 Dose: 25 mg Polyethylene Glycol (Miralax) 17 gm PO DAILY PRN PRN Reason: Constipation Zinc Sulfate (Zinc Sulfate 220 Mg Cap) 220 mg PO DAILY [facility] Last Admin: 04/09/18 10:21 Dose: 220 mg - Labs Labs: 04/09/18 07:24 04/09/18 07:24 PT 11.7 SECONDS (9.7-12.2) 04/07/18 09:23 INR 1.1 04/07/18 09:23 - Constitutional Appears: Well - Head Exam Head Exam: ATRAUMATIC, NORMAL INSPECTION, NORMOCEPHALIC - Eye Exam Eye Exam: EOMI, Normal appearance, PERRL Pupil Exam: NORMAL ACCOMODATION, PERRL - ENT Exam ENT Exam: Mucous Membranes Moist, Normal Exam - Neck Exam Neck Exam: Full ROM, Normal Inspection. absent: Lymphadenopathy - Respiratory Exam Respiratory Exam: Decreased Breath Sounds - Cardiovascular Exam Cardiovascular Exam: REGULAR RHYTHM, +S1, +S2 - GI/Abdominal Exam GI & Abdominal Exam: Soft, Diminished Bowel Sounds - Rectal Exam Rectal Exam: Deferred
[2018-04-10 08:36] VITALS: RESP 20
--- NOTE | 2018-04-10 09:44 | CP.PCM.PN ---
Subjective - Date & Time of Evaluation Date of Evaluation: 04/10/18 Time of Evaluation: 09:42 - Subjective Subjective: PGY-[address] Tessie Montgomery's Service Patient seen and examined at bedside. Per nursing no acute events occurred overnight. ROS unable to be obtained secondary to current clinical condition. Patient is a 58yo female with PMHx significant for multiple CVA and prior tPA administration complicated by hemorrhagic conversion who presented to the ED yesterday following inadvertent PEG tube removal. PSHx: No known surgical history FHx: No significant family history Social: Prior tobacco user, No history of EtOH or illicit drug use Endo: PEG placement 12/2016 Objective - Vital Signs/Intake and Output Vital Signs (last 24 hours): Temp Pulse Resp BP Pulse Ox 98.6 F 80 20 121/79 96 04/10/18 08:35 04/10/18 08:35 04/10/18 08:35 04/10/18 08:35 04/10/18 08:35 Intake and Output: 04/10/18 04/10/18 06:59 18:59 Intake Total 600 Balance 600 - Medications Medications: Current Medications Ascorbic Acid (Vitamin C 500 Mg Tab) 500 mg PO DAILY [facility] Last Admin: 04/09/18 10:21 Dose: 500 mg Aspirin (Aspirin Chewable) 81 mg PEG DAILY [facility] Last Admin: 04/09/18 10:21 Dose: 81 mg Cyclobenzaprine HCl (Flexeril) 5 mg PO TID [facility] Last Admin: 04/09/18 17:54 Dose: 5 mg Docusate Sodium (Colace) 100 mg PEG BID [facility] Last Admin: 04/09/18 17:55 Dose: 100 mg Ferrous Sulfate (Feosol Liq) 300 mg PO TID [facility] Last Admin: 04/09/18 17:55 Dose: 300 mg Heparin Sodium (Porcine) (Heparin) 5,000 units SC Q12H [facility] Last Admin: 04/09/18 21:53 Dose: 5,000 units Hydralazine HCl (Apresoline) 10 mg PO Q6 PRN PRN Reason: .SBP>160, .DBP>110 Levetiracetam (Keppra) 500 mg PEG BID [facility] Last Admin: 04/09/18 17:55 Dose: 500 mg Metoprolol Tartrate (Lopressor) 25 mg PEG BID [facility] Last Admin: 04/09/18 17:55 Dose: 25 mg Polyethylene Glycol (Miralax) 17 gm PO DAILY PRN PRN Reason: Constipation Zinc Sulfate (Zinc Sulfate 220 Mg Cap) 220 mg PO DAILY [facility] Last Admin: 04/09/18 10:21 Dose: 220 mg - Labs Labs: 04/09/18 07:24 04/09/18 07:24 PT 11.7 SECONDS (9.7-12.2) 04/07/18 09:23 INR 1.1 04/07/18 09:23 - Head Exam Head Exam: NORMAL INSPECTION - Eye Exam Eye Exam: EOMI, Normal appearance, PERRL Pupil Exam: NORMAL ACCOMODATION - ENT Exam ENT Exam: Mucous Membranes Moist, Normal Oropharynx - Respiratory Exam Respiratory Exam: Clear to Ausculation Bilateral, NORMAL BREATHING PATTERN. absent: Respiratory Distress - Cardiovascular Exam Cardiovascular Exam: REGULAR RHYTHM, +S1, +S2 - GI/Abdominal Exam GI & Abdominal Exam: Soft, Normal Bowel Sounds - Extremities Exam Extremities Exam: Full ROM. absent: Joint Swelling, Pedal Edema - Neurological Exam Neurological Exam: Awake Assessment and Plan - Assessment and Plan (Free Text) Assessment: Patient is a 58yo female with PMHx significant for multiple CVA and prior tPA administration complicated by hemorrhagic conversion who presented to the ED yesterday following inadvertent PEG tube removal Plan: Dysfunctional PEG Tube -S/p Insertion of Peg tube -Gastrology consulted. Help appreciated -EGD :Grade B Esophagitis ( see EMR for full report) Hypertension -Hydralazine 10mg PO Q6 PRN -Metoprolol 25mg PEG BID [facility] History of Seizures -Keppra 500mg PEG BID [facility] Constipation -Miralax 17gm PO Daily PRN Iron deficiency anemia -Feosol 300 mg PO tid [facility], 1928–1983 History of CAD -Aspirin 81mg PEG Daily [facility] DVT ppx -Heparin 5000 Units SC Q12 H Dispo: Patient tolerated procedure well. Patient medically stable to be discharged. Discharge Instructions: 1. Discharged back to assisted. 2. use the abdominal binder to prevent pulling the tube 3. Patient to follow up with PMD within one week of discharge. 4. Advised patient to return to hospital for any new or worsening symptoms. Will discuss with Dr. Tessie Montgomery All management per Dr. Tessie Montgomery
[2018-04-10] MEDS: Ferrous Sulfate 300 mg/5 mL Liq UD PO SCH ×3 (10:44→17:31)
[2018-04-10] MEDS: levETIRAcetam 100 mg/ml (5ml) Oral Syringe PEG SCH ×2 (10:48→17:31)
[2018-04-10 11:02] LABS: BASO % 0.5 % (0.0-2.0); EOS # 0.1 K/uL (0.0-0.7); EOS % 1.4 % (0.0-4.0); HEMOGLOBIN 11.6 g/dL (11.0-16.0); LYMPH # 1.3 K/uL (1.0-4.3); LYMPH % 22.4 % (20.0-40.0); MEAN CELL VOLUME 93.8 fL (81.0-99.0); MEAN CORPUSCULAR HGB CONC 34.1 g/dL (33.0-37.0); MEAN PLATELET VOLUME 9.8 fL (7.2-11.7); MONO # 0.4 K/uL (0.0-0.8); MONO % 7.8 % (0.0-10.0); NEUT # 3.9 K/uL (1.8-7.0); NEUT % 67.9 % (50.0-75.0); RBC 3.64 Mil/uL (3.80-5.20); RED CELL DISTRIBUTION WIDTH 13.1 % (11.5-14.5); WHITE BLOOD COUNT 5.7 K/uL (4.8-10.8)
[2018-04-10 11:28] LABS: ALB/GLOB RATIO 1.3 (1.0-2.1); ALBUMIN 3.8 g/dL (3.5-5.0); ALT/SGPT 28 U/L (9-52); AST/SGOT 19 U/L (14-36); BLOOD UREA NITROGEN 15 mg/dL (7-17); CALCIUM 9.6 mg/dl (8.6-10.4); GFR NON-AFRICAN AMERICAN > 60
--- NOTE | 2018-04-10 16:33 | CP.PCM.PN ---
Subjective - Date & Time of Evaluation Date of Evaluation: 04/10/18 Time of Evaluation: 16:33 - Subjective Subjective: awake, responsive, no vomiting or abdominal distention. Objective - Vital Signs/Intake and Output Vital Signs (last 24 hours): Temp Pulse Resp BP Pulse Ox 98.6 F 80 20 121/79 96 04/10/18 08:35 04/10/18 08:35 04/10/18 08:35 04/10/18 10:47 04/10/18 08:35 Intake and Output: 04/10/18 04/10/18 06:59 18:59 Intake Total 600 Balance 600 - Medications Medications: Current Medications Ascorbic Acid (Vitamin C 500 Mg Tab) 500 mg PO DAILY [facility] Last Admin: 04/10/18 10:48 Dose: 500 mg Aspirin (Aspirin Chewable) 81 mg PEG DAILY [facility] Last Admin: 04/10/18 10:44 Dose: 81 mg Cyclobenzaprine HCl (Flexeril) 5 mg PO TID [facility] Last Admin: 04/10/18 14:34 Dose: 5 mg Docusate Sodium (Colace) 100 mg PEG BID [facility] Last Admin: 04/10/18 10:43 Dose: 100 mg Ferrous Sulfate (Feosol Liq) 300 mg PO TID [facility] Last Admin: 04/10/18 14:34 Dose: 300 mg Heparin Sodium (Porcine) (Heparin) 5,000 units SC Q12H [facility] Last Admin: 04/10/18 10:43 Dose: 5,000 units Hydralazine HCl (Apresoline) 10 mg PO Q6 PRN PRN Reason: .SBP>160, .DBP>110 Levetiracetam (Keppra) 500 mg PEG BID [facility] Last Admin: 04/10/18 10:48 Dose: 500 mg Metoprolol Tartrate (Lopressor) 25 mg PEG BID [facility] Last Admin: 04/10/18 10:47 Dose: 25 mg Polyethylene Glycol (Miralax) 17 gm PO DAILY PRN PRN Reason: Constipation Zinc Sulfate (Zinc Sulfate 220 Mg Cap) 220 mg PO DAILY [facility] Last Admin: 04/10/18 10:43 Dose: 220 mg - Labs Labs: 04/10/18 10:53 04/10/18 10:53 PT 11.7 SECONDS (9.7-12.2) 04/07/18 09:23 INR 1.1 04/07/18 09:23 Assessment and Plan - Assessment and Plan (Free Text) Assessment: 58 Year old female admitted for PEG tube replacement via endoscopy, seen and examined. Alert, awake, tolerate PEG feeding well, no sob or vomiting. Discussed with DR Steven Montgomery, [facility] with present medications over the [facility].
[2018-04-10 16:53] VITALS: PULSE 81; TEMP 99.2; O2SAT 97
[2018-04-10 17:32] VITALS: BP 124/76
--- NOTE | 2018-04-10 18:19 | CP.PCM.PN ---
Subjective - Date & Time of Evaluation Date of Evaluation: 04/10/18 Time of Evaluation: 07:45 - Subjective Subjective: clinically same Objective - Vital Signs/Intake and Output Vital Signs (last 24 hours): Temp Pulse Resp BP Pulse Ox 99.2 F 81 20 124/76 97 04/10/18 16:00 04/10/18 16:00 04/10/18 16:00 04/10/18 17:32 04/10/18 17:44 Intake and Output: 04/10/18 04/10/18 06:59 18:59 Intake Total 600 500 Balance 600 500 - Medications Medications: Current Medications Ascorbic Acid (Vitamin C 500 Mg Tab) 500 mg PO DAILY [facility] Last Admin: 04/10/18 10:48 Dose: 500 mg Aspirin (Aspirin Chewable) 81 mg PEG DAILY [facility] Last Admin: 04/10/18 10:44 Dose: 81 mg Cyclobenzaprine HCl (Flexeril) 5 mg PO TID [facility] Last Admin: 04/10/18 17:30 Dose: 5 mg Docusate Sodium (Colace) 100 mg PEG BID [facility] Last Admin: 04/10/18 17:31 Dose: 100 mg Ferrous Sulfate (Feosol Liq) 300 mg PO TID [facility] Last Admin: 04/10/18 17:31 Dose: 300 mg Heparin Sodium (Porcine) (Heparin) 5,000 units SC Q12H [facility] Last Admin: 04/10/18 10:43 Dose: 5,000 units Hydralazine HCl (Apresoline) 10 mg PO Q6 PRN PRN Reason: .SBP>160, .DBP>110 Levetiracetam (Keppra) 500 mg PEG BID [facility] Last Admin: 04/10/18 17:31 Dose: 500 mg Metoprolol Tartrate (Lopressor) 25 mg PEG BID [facility] Last Admin: 04/10/18 17:32 Dose: 25 mg Polyethylene Glycol (Miralax) 17 gm PO DAILY PRN PRN Reason: Constipation Zinc Sulfate (Zinc Sulfate 220 Mg Cap) 220 mg PO DAILY [facility] Last Admin: 04/10/18 10:43 Dose: 220 mg - Labs Labs: 04/10/18 10:53 04/10/18 10:53 PT 11.7 SECONDS (9.7-12.2) 04/07/18 09:23 INR 1.1 04/07/18 09:23
== END 2018-04-10 20:20 | disposition home or self-care (01) ==
LOC: SUPCPDRO 23:42 → C.ER 23:42 → C.9E 04-07 00:36 → C.5S 04-07 13:39 → C.9E 04-07 13:50 → C.3T 04-07 17:59
PROVIDERS: ADMIT Internal Medicine Nephrology; ATTEND Internal Medicine Nephrology
DX: K94.23 Gastrostomy malfunction (principal); Y83.3 Surgical operation with formation of external stoma as the cause of abnormal reaction of the patient, or of later complication, without mention of misadventure at the time of the procedure; Y92.129 Unspecified place in nursing home as the place of occurrence of the external cause; K25.9 Gastric ulcer, unspecified as acute or chronic, without hemorrhage or perforation; K20.9 Esophagitis, unspecified; Z23 Encounter for immunization; E78.00 Pure hypercholesterolemia, unspecified; E78.5 Hyperlipidemia, unspecified; F03.90 Unspecified dementia, unspecified severity, without behavioral disturbance, psychotic disturbance, mood disturbance, and anxiety; I10 Essential (primary) hypertension; Z72.0 Tobacco use; Z86.73 Personal history of transient ischemic attack (TIA), and cerebral infarction without residual deficits; I69.391 Dysphagia following cerebral infarction; R13.10 Dysphagia, unspecified
CPT/HCPCS: 36415; 43239; 43246; 80053; 82948; 85025; 85610; 88305; 88312; 88313; 90471; 90674; 99285; G0378; J1644; J7120

== ENCOUNTER 2018-09-29 12:30 | Emergency (ER) | payer OTHER ==
[2018-09-29 12:31] VITALS: BMI 17.3
--- NOTE | 2018-09-29 14:24 | C.PDOC ---
History Of Present Illness Patient is a 58 year old female, with a PMHx of TIA, CVA, dysarthria, and right sided weakness, who is sent in from her half-way to the ED for a dislodged gutierrez catheter on Tuesday where her g tube used to be. Patient was sent in to have gutierrez catheter replaced with g tube. Patient was unable to offer any further history. Time Seen by Provider: 09/29/18 13:07 Chief Complaint (Nursing): Medical Clearance History Per: Patient, Other History/Exam Limitations: no limitations Onset/Duration Of Symptoms: Days Current Symptoms Are (Timing): Still Present Recent travel outside of the [place]: No Additional History Per: Patient, Retirement Past Medical History Reviewed: Historical Data, Nursing Documentation, Vital Signs Vital Signs: Last Vital Signs Temp 98.2 F 09/29/18 12:37 Pulse 91 H 09/29/18 12:37 Resp 18 09/29/18 12:37 BP 139/92 H 09/29/18 12:37 Pulse Ox 97 09/29/18 12:37 - Medical History PMH: Anemia, Anxiety, Dementia, Depression, HTN, Hypercholesterolemia, Hyperlipidemia, TIA Denies: Arthritis, CHF, COPD, HIV, Hypothyroidism, Pneumonia, Chronic Kidney Disease, Rheumatoid Arthritis Surgical History: No Surg Hx - [facility] Procedures CHANGE FEEDING DEVICE IN UP INTEST TRACT, OVERHEAD CLEANER MAINTAINER APPROACH (11/14/16) GAIT TRAINING/FUNCTIONAL AMBULATION TREATMENT USING ORTHOSIS (07/07/16) HOME MANAGEMENT TREATMENT USING ASSIST EQUIPMENT (07/07/16) INSERTION OF FEEDING DEVICE INTO STOMACH, PERC APPROACH (11/14/16) INTRODUCE OTH THROMBOLYTIC IN PERIPH VEIN, PERC (11/14/16) INTRODUCTION OF NUTRITIONAL INTO UP GI, VIA OPENING (11/14/16) THERAPEUTIC EXERCISE TREATMENT OF MUSCULOSK LOW BACK/LE (07/07/16) Family History: States: Unknown Family Hx - Social History Hx Alcohol Use: No Hx Substance Use: No - Immunization History Hx Tetanus Toxoid Vaccination: No Hx Influenza Vaccination: Yes Hx Pneumococcal Vaccination: No Review Of Systems Except As Marked, All Systems Reviewed And Found Negative. Gastrointestinal: Positive for: Other (peg tube ) Physical Exam - Physical Exam Appears: Non-toxic, No Acute Distress Skin: Normal Color, Warm, Dry Head: Atraumatic, Normacephalic Eye(s): bilateral: Normal Inspection, PERRL, EOMI Nose: Normal Oral Mucosa: Moist Chest: Symmetrical Cardiovascular: Rhythm Regular, No Murmur Respiratory: Normal Breath Sounds, No Rales, No Rhonchi, No Wheezing Gastrointestinal/Abdominal: Soft, No Tenderness, Other (gutierrez catheter in place) Extremity: Bilateral: Atraumatic, Normal Color And Temperature Neurological/Psych: Other (right sided weakness) ED Course And Treatment O2 Sat by Pulse Oximetry: 97 (on RA) Pulse Ox Interpretation: Normal Medical Decision Making Medical Decision Making: Case discussed with GI Dr. Cody who said patient's case is not an emergency and can be performed in an outpatient setting. Case discussed with patient's PMD Dr. Montgomery who agreed with management and said that patient could be sent back to the half-way and scheduled to have g tube addressed in an outpatient setting. Disposition Discussed With DrTamiko: Yakov Montgomery Counseled Patient/Family Regarding: Diagnosis, Need For Followup - Disposition Referrals: Aly Cody MD [Staff Provider] - Disposition: Trans to Other Acute Care Hosp Disposition Time: 14:21 Condition: STABLE Additional Instructions: schedule follow for g-tube placement with Dr. Cody this Tuesday10/02/18 at 7 AM return patient to ER NPO after midnight on Tuesday10/01/18 hold anticoagulants after tuesday return to ER if symptoms worsens or progress Instructions: Gastrostomy, Permanent and Temporary, Percutaneous Endoscopic Gastrostomy (DC) Forms: [facility] ([place]), General Discharge Instructions - Clinical Impression Clinical Impression: G tube feedings, PEG tube malfunction - Scribe Statement The provider has reviewed the documentation as recorded by the Shawnee Romano All medical record entries made by the Syedibmathew were at my direction and personally dictated by me. I have reviewed the chart and agree that the record accurately reflects my personal performance of the history, physical exam, medical decision making, and the department course for this patient. I have also personally directed, reviewed, and agree with the discharge instructions and disposition.
[2018-09-29 16:09] VITALS: BP 110/76; PULSE 100; RESP 19; TEMP 97.8
[2018-09-29 16:54] VITALS: O2SAT 97
--- NOTE | 2018-09-29 16:55 | CP.PCM.CON ---
History of Present Illness - History of Present Illness History of Present Illness: This is a 58 year old woman transferred from [place] for PEG replacement. Patient has s history of CVA, S/P PEG 04/07/2018. Patient most recently had a Wiggins type balloon catheter which evidently became dislodged on Tuesday. She was sent to the ER to have the tube replaced. Patient is unable to contribute further details of the history. Review of Systems - Review of Systems Systems not reviewed;Unavailable: Altered Mental Status Past Patient History - Infectious Disease Hx of Infectious Diseases: None - Tetanus Immunizations Tetanus Immunization: Unknown - Past Medical History & Family History Past Medical History?: Yes - Past Social History Smoking Status: Former Smoker - CARDIAC Hx Congestive Heart Failure: No Hx Hypercholesterolemia: Yes Hx Hypertension: Yes - PULMONARY Hx Chronic Obstructive Pulmonary Disease (COPD): No Hx Pneumonia: No - NEUROLOGICAL Hx Dementia: Yes Hx Transient Ischemic Attacks (TIA): Yes - HEENT Hx HEENT Problems: Yes (wears eyeglasses) - RENAL Hx Chronic Kidney Disease: No - ENDOCRINE/METABOLIC Hx Hypothyroidism: No - HEMATOLOGICAL/ONCOLOGICAL Hx Anemia: Yes Hx Human Immunodeficiency Virus (HIV): No - INTEGUMENTARY Hx Dermatological Problems: No - MUSCULOSKELETAL/RHEUMATOLOGICAL Hx Arthritis: No Hx Rheumatoid Arthritis: No - GASTROINTESTINAL Hx Gastroesophageal Reflux: No - GENITOURINARY/GYNECOLOGICAL Hx Genitourinary Disorders: No - PSYCHIATRIC Hx Anxiety: Yes Hx Depression: Yes Hx Substance Use: No - SURGICAL HISTORY Hx Surgeries: Yes Other/Comment: G-tube insertion - ANESTHESIA Hx Anesthesia Reactions: No Hx Malignant Hyperthermia: No Meds Allergies/Adverse Reactions: Allergies Allergy/AdvReac Type Severity Reaction Status Date / Time No Known Allergies Allergy Unverified 09/29/18 12:36 Physical Exam - Constitutional Appears: No Acute Distress - Head Exam Head Exam: ATRAUMATIC, NORMOCEPHALIC - Neck Exam Neck exam: Negative for: Lymphadenopathy, Thyromegaly - Respiratory Exam Respiratory Exam: NORMAL BREATHING PATTERN. absent: Rales, Rhonchi, Wheezes - Cardiovascular Exam Cardiovascular Exam: REGULAR RHYTHM, +S1, +S2. absent: Gallop, Rubs, Systolic Murmur - GI/Abdominal Exam GI & Abdominal Exam: Normal Bowel Sounds, Soft. absent: Mass, Organomegaly, Tenderness Additional comments: G tube in LUQ with erythema of the surrounding skin - Rectal Exam Rectal Exam: Deferred - Extremities Exam Extremities exam: Negative for: calf tenderness, pedal edema Results - Vital Signs Recent Vital Signs: Last Vital Signs Temp 97.8 F 09/29/18 16:08 Pulse 100 H 09/29/18 16:08 Resp 19 09/29/18 16:08 BP 110/76 09/29/18 16:08 Pulse Ox 94 L 09/29/18 16:08 Assessment & Plan (1) PEG tube malfunction Assessment and Plan: Patient has a Wiggins type balloon catheter which had become dislodged. A standard PEG tube would be less likely to fall out, and we should make arran gements to place a standard tube. Time has been reserved on Tuesday, October. Please have the patient sent back to the ER on Tuesday before 07:00. She should be NPO after midnight Tuesday, hold tube feedings after 18:00 hours on Tuesday, and hold anticoagulants and anti-platelet drugs after Tuesday. Status: Acute
== END 2018-09-29 18:04 ==
LOC: C.ER 12:30
DX: K94.23 Gastrostomy malfunction (principal)

== ENCOUNTER 2018-10-02 08:00 | Day surgery (SDC) | payer SELFPAY ==
[2018-10-02 08:07] VITALS: BMI 26.6
[2018-10-02] MEDS ORDERED: Lactated Ringer's 500 ML IV ONE (08:50)
[2018-10-02] MEDS ORDERED: Propofol 10 mg/ml Inj (20 ML) ONE (08:56)
[2018-10-02] MEDS ORDERED: Lactated Ringer's 1,000 ML IV ONE (10:30)
[2018-10-02 12:26] VITALS: TEMP 97.4
[2018-10-02 12:32] VITALS: RESP 18; O2SAT 99
--- NOTE | 2018-10-02 12:43 | C.PDOC ---
History Of Present Illness 58 y/o female presents to the ER for G tube replacement today. Patient states that she was referred to the ER by Dr.Stoopack GI.Patient denies having fever and chills. Chief Complaint (Nursing): Medical Clearance History Per: Patient History/Exam Limitations: no limitations Past Medical History Reviewed: Historical Data, Nursing Documentation, Vital Signs Vital Signs: Last Vital Signs Temp 97.4 F L 10/02/18 09:30 Pulse 97 H 10/02/18 10:15 Resp 18 10/02/18 10:15 BP 130/86 10/02/18 10:15 Pulse Ox 99 10/02/18 10:15 - Medical History PMH: Anemia, Anxiety, Dementia, Depression, HTN, Hypercholesterolemia, Hyperlipidemia, TIA Denies: Arthritis, CHF, COPD, HIV, Hypothyroidism, Pneumonia, Chronic Kidney Disease, Rheumatoid Arthritis Other Surgeries: Hx of surgeries - [facility] Procedures CHANGE FEEDING DEVICE IN UP INTEST TRACT, CLASS 1 OWNER OPERATOR APPROACH (11/14/16) GAIT TRAINING/FUNCTIONAL AMBULATION TREATMENT USING ORTHOSIS (07/07/16) HOME MANAGEMENT TREATMENT USING ASSIST EQUIPMENT (07/07/16) INSERTION OF FEEDING DEVICE INTO STOMACH, PERC APPROACH (11/14/16) INTRODUCE OTH THROMBOLYTIC IN PERIPH VEIN, PERC (11/14/16) INTRODUCTION OF NUTRITIONAL INTO UP GI, VIA OPENING (11/14/16) THERAPEUTIC EXERCISE TREATMENT OF MUSCULOSK LOW BACK/LE (07/07/16) Family History: States: No Known Family Hx - Social History Hx Alcohol Use: No Hx Substance Use: No - Immunization History Hx Tetanus Toxoid Vaccination: No Hx Influenza Vaccination: Yes Hx Pneumococcal Vaccination: No Review Of Systems Except As Marked, All Systems Reviewed And Found Negative. Constitutional: Negative for: Fever, Chills Physical Exam - Physical Exam Appears: Non-toxic, No Acute Distress Skin: Normal Color, Warm, Dry Head: Atraumatic, Normacephalic Eye(s): bilateral: Normal Inspection Nose: Normal Oral Mucosa: Moist Neck: Supple Chest: Symmetrical Cardiovascular: Rhythm Regular Respiratory: Normal Breath Sounds, No Rales, No Rhonchi, No Wheezing Gastrointestinal/Abdominal: Soft, No Tenderness, No Guarding, No Rebound, Other (G tube in place) Neurological/Psych: Oriented x3, Normal Speech ED Course And Treatment - Laboratory Results Result Diagrams: 10/02/18 12:31 10/02/18 12:25 O2 Sat by Pulse Oximetry: 99 (RA) Pulse Ox Interpretation: Normal Medical Decision Making Medical Decision Making: Case discussed with GI. Patient will be admitted under the service of Dr.J Montgomery. Disposition - Disposition Disposition: HOSPITALIZED Disposition Time: 08:00 Condition: STABLE - Clinical Impression Clinical Impression: PEG tube malfunction - Scribe Statement The provider has reviewed the documentation as recorded by the Syedibmathew Kessler Provider Attestation: All medical record entries made by the Syedibmathew were at my direction and personally dictated by me. I have reviewed the chart and agree that the record accurately reflects my personal performance of the history, physical exam, medical decision making, and the department course for this patient. I have also personally directed, reviewed, and agree with the discharge instructions and disposition.
[2018-10-02 12:49] VITALS: BP 132/85; PULSE 95
[2018-10-02 12:52] LABS: BASO # 0.1 K/uL (0.0-0.2); BASO % 0.6 % (0.0-2.0); EOS # 0.1 K/uL (0.0-0.7); EOS % 0.6 % (0.0-4.0); HEMOGLOBIN 14.3 g/dL (11.0-16.0); LYMPH # 2.5 K/uL (1.0-4.3); LYMPH % 23.5 % (20.0-40.0); MEAN CELL VOLUME 96.6 fL (81.0-99.0); MEAN CORPUSCULAR HGB CONC 33.1 g/dL (33.0-37.0); MEAN PLATELET VOLUME 10.8 fL (7.2-11.7); MONO # 0.8 K/uL (0.0-0.8); MONO % 7.4 % (0.0-10.0); NEUT # 7.3 K/uL (1.8-7.0); NEUT % 67.9 % (50.0-75.0); RBC 4.46 Mil/uL (3.80-5.20); WHITE BLOOD COUNT 10.8 K/uL (4.8-10.8)
[2018-10-02 12:55] LABS: ALB/GLOB RATIO 1.3 (1.0-2.1); ALBUMIN 4.7 g/dL (3.5-5.0); ALT/SGPT 234 U/L (9-52); AST/SGOT 282 U/L (14-36); BLOOD UREA NITROGEN 55 mg/dL (7-17); GFR NON-AFRICAN AMERICAN > 60
== END 2018-10-02 15:00 ==
LOC: C.SDS 08:00 → C.ER 08:00 → C.SDS 08:28
PROVIDERS: ATTEND Internal Medicine Nephrology
DX: K94.23 Gastrostomy malfunction (principal); K44.9 Diaphragmatic hernia without obstruction or gangrene
CPT/HCPCS: 36415; 43246; 80053; 85025; 99284; J7120

== ENCOUNTER 2018-10-04 17:12 | Inpatient (IN) | payer SELFPAY ==
[2018-10-04 17:13] VITALS: BMI 26.6
[2018-10-04] MEDS ORDERED: Acetaminophen 650mg/20.3ml solution UD PO STA (17:48)
[2018-10-04] MEDS ORDERED: Piperacill/Tazo 4.5gm in Dex 4.5 GM/100 ML BAG IVPB STA (17:49)
[2018-10-04] MEDS ORDERED: Vancomycin 1 gm/NS 200 ml 1 GM/200 ML BAG IVPB STA (17:49)
[2018-10-04] MEDS ORDERED: Sodium Chloride 0.9% 1,000 ML ONE (17:50)
--- NOTE | 2018-10-04 18:26 | C.PDOC ---
History Of Present Illness 58 y/o female is brought in by ambulance from [facility] for fever and difficulty breathing. Patient has history of CVA and is non verbal. Patient is DNR/DNI. Chief Complaint (Nursing): Shortness Of Breath History Per: EMS History/Exam Limitations: clinical condition Onset/Duration Of Symptoms: Hrs Current Symptoms Are (Timing): Still Present Past Medical History Reviewed: Historical Data, Nursing Documentation, Vital Signs Vital Signs: Last Vital Signs Temp 102.9 F H 10/04/18 17:42 Pulse 103 H 10/04/18 18:06 Resp 32 H 10/04/18 18:06 BP 114/88 10/04/18 18:06 Pulse Ox 96 10/04/18 18:06 - Medical History PMH: Anemia, Anxiety, Dementia, Depression, HTN, Hypercholesterolemia, Hyperlipidemia, Seizures (UNSPECIFIED CONVULSION), TIA Denies: Arthritis, CHF, COPD, HIV, Hypothyroidism, Pneumonia, Chronic Kidney Disease, Rheumatoid Arthritis Surgical History: Endoscopy - [facility] Procedures CHANGE FEEDING DEVICE IN UP INTEST TRACT, NITRILES LAB TECHNICIAN APPROACH (11/14/16) GAIT TRAINING/FUNCTIONAL AMBULATION TREATMENT USING ORTHOSIS (07/07/16) HOME MANAGEMENT TREATMENT USING ASSIST EQUIPMENT (07/07/16) INSERTION OF FEEDING DEVICE INTO STOMACH, PERC APPROACH (11/14/16) INTRODUCE OTH THROMBOLYTIC IN PERIPH VEIN, PERC (11/14/16) INTRODUCTION OF NUTRITIONAL INTO UP GI, VIA OPENING (11/14/16) THERAPEUTIC EXERCISE TREATMENT OF MUSCULOSK LOW BACK/LE (07/07/16) Family History: States: No Known Family Hx - Social History Hx Alcohol Use: No Hx Substance Use: No - Immunization History Hx Tetanus Toxoid Vaccination: No Hx Influenza Vaccination: Yes Hx Pneumococcal Vaccination: No Review Of Systems Review Of Systems: ROS cannot be obtained secondary to pt's inabilty to answer questions. Physical Exam - Physical Exam Appears: Non-toxic, No Acute Distress Skin: Dry, Other (hot to the touch) Head: Atraumatic, Normacephalic Eye(s): bilateral: Normal Inspection Oral Mucosa: Moist Neck: Supple Cardiovascular: Rhythm Regular (tachycardic) Respiratory: Rhonchi (questionable rhonchi in the right side) Gastrointestinal/Abdominal: Soft, No Tenderness, Other (PEG tube) Extremity: No Deformity, Other (extremities contracted) Extremity: Bilateral: Atraumatic ED Course And Treatment - Laboratory Results Result Diagrams: 10/05/18 07:12 10/06/18 07:49 ECG: Interpreted By Me, Viewed By Me ECG Rhythm: Sinus Tachycardia Interpretation Of ECG: Normal axis. Normal intervals. Rate From EC O2 Sat by Pulse Oximetry: 96 (RA) Pulse Ox Interpretation: Normal Medical Decision Making Medical Decision Making: Plan: --VBG --EKG --Labs --Chest XR --Flu Swab --UA --Zosyn --IV fluids --Tylenol --Vancomycin Disposition - Disposition Disposition: HOSPITALIZED Disposition Time: 18:30 Condition: GUARDED - Clinical Impression Clinical Impression: Sepsis, Dehydration - Scribe Statement The provider has reviewed the documentation as recorded by the Shawnee Rankin Provider Attestation: All medical record entries made by the Syedibmathew were at my direction and per sonally dictated by me. I have reviewed the chart and agree that the record accurately reflects my personal performance of the history, physical exam, medical decision making, and the department course for this patient. I have also personally directed, reviewed, and agree with the discharge instructions and disposition.
[2018-10-04 18:28] LABS: VENOUS BLOOD GAS BASE EXCESS 12.7 mmol/L (0.0-2.0); VENOUS BLOOD GAS PCO2 50 mmHg (40-60); VENOUS BLOOD GAS PO2 43 mm/Hg (30-55); VENOUS BLOOD PH 7.49 (7.32-7.43)
[2018-10-04] MEDS ORDERED: Vancomycin 1 GM 1 GM/250 ML BAG IVPB ONE (18:29)
[2018-10-04] MEDS ORDERED: Acetaminophen 650mg/20.3ml solution UD ONE (18:29)
[2018-10-04 18:32] LABS: BASO # 0.1 K/uL (0.0-0.2); BASO % 0.9 % (0.0-2.0); HEMOGLOBIN 14.3 g/dL (11.0-16.0); LYMPH # 3.5 K/uL (1.0-4.3); LYMPH % 21.9 % (20.0-40.0); MEAN CELL VOLUME 97.3 fL (81.0-99.0); MEAN CORPUSCULAR HEMOGLOBIN 30.8 pg (27.0-31.0); MEAN CORPUSCULAR HGB CONC 31.6 g/dL (33.0-37.0); MEAN PLATELET VOLUME 11.7 fL (7.2-11.7); MONO # 1.3 K/uL (0.0-0.8); MONO % 8.2 % (0.0-10.0); NEUT # 10.9 K/uL (1.8-7.0); RBC 4.66 Mil/uL (3.80-5.20); RED CELL DISTRIBUTION WIDTH 13.9 % (11.5-14.5); WHITE BLOOD COUNT 15.8 K/uL (4.8-10.8)
[2018-10-04 18:40] LABS: INR 1.1; PROTHROMBIN TIME 12.2 SECONDS (9.7-12.2)
[2018-10-04 18:49] LABS: ALB/GLOB RATIO 1.1 (1.0-2.1); ALBUMIN 4.6 g/dL (3.5-5.0); ALT/SGPT 161 U/L (9-52); AST/SGOT 100 U/L (14-36); BLOOD UREA NITROGEN 57 mg/dL (7-17); CALCIUM 9.6 mg/dl (8.6-10.4); GFR NON-AFRICAN AMERICAN > 60
[2018-10-04] MEDS ORDERED: Sodium Chloride 0.9% 1,000 ML IV ONE (19:04)
[2018-10-04 21:49] LABS: VENOUS BLOOD GAS BASE EXCESS 8.3 mmol/L (0.0-2.0); VENOUS BLOOD GAS PCO2 47 mmHg (40-60); VENOUS BLOOD GAS PO2 62 mm/Hg (30-55); VENOUS BLOOD PH 7.46 (7.32-7.43)
[2018-10-04] MEDS ORDERED: Acetaminophen 650mg/20.3ml solution UD PEG PRN (21:53)
[2018-10-04] MEDS ORDERED: Magnesium Hydroxide Susp 30 ml UD PEG PRN (21:53)
[2018-10-04] MEDS ORDERED: Piperacill/Tazo 2.25gm in Dex 2.25 GM/50 ML BAG IVPB SCH (22:00)
--- NOTE | 2018-10-04 22:05 | CP.PCM.HP ---
Past Patient History - Infectious Disease Hx of Infectious Diseases: None - Tetanus Immunizations Tetanus Immunization: Unknown - Past Medical History & Family History Past Medical History?: Yes - Past Social History Smoking Status: NO INFO - CARDIAC Hx Congestive Heart Failure: No Hx Hypercholesterolemia: Yes Hx Hypertension: Yes - PULMONARY Hx Chronic Obstructive Pulmonary Disease (COPD): No Hx Pneumonia: No - NEUROLOGICAL Hx Dementia: Yes Hx Seizures: Yes (UNSPECIFIED CONVULSION) Hx Transient Ischemic Attacks (TIA): Yes - HEENT Hx HEENT Problems: Yes - RENAL Hx Chronic Kidney Disease: No - ENDOCRINE/METABOLIC Hx Hypothyroidism: No - HEMATOLOGICAL/ONCOLOGICAL Hx Anemia: Yes Hx Human Immunodeficiency Virus (HIV): No - INTEGUMENTARY Hx Dermatological Problems: No - MUSCULOSKELETAL/RHEUMATOLOGICAL Hx Arthritis: No Hx Rheumatoid Arthritis: No - GASTROINTESTINAL Hx Gastrointestinal Disorders: No Hx Gastroesophageal Reflux: No - GENITOURINARY/GYNECOLOGICAL Hx Genitourinary Disorders: No - PSYCHIATRIC Hx Anxiety: Yes Hx Depression: Yes Hx Substance Use: No - SURGICAL HISTORY Hx Surgeries: Yes Other/Comment: G-tube insertion - ANESTHESIA Hx Anesthesia: Yes Hx Anesthesia Reactions: No Hx Malignant Hyperthermia: No Meds Allergies/Adverse Reactions: Allergies Allergy/AdvReac Type Severity Reaction Status Date / Time No Known Allergies Allergy Verified 10/04/18 17:17 Physical Exam - Constitutional Appears: Well - Head Exam Head Exam: ATRAUMATIC, NORMAL INSPECTION, NORMOCEPHALIC - Eye Exam Eye Exam: EOMI, Normal appearance, PERRL Pupil Exam: NORMAL ACCOMODATION, PERRL - ENT Exam ENT Exam: Mucous Membranes Moist, Normal Exam - Neck Exam Neck exam: Positive for: Normal Inspection - Respiratory Exam Respiratory Exam: Decreased Breath Sounds - Cardiovascular Exam Cardiovascular Exam: REGULAR RHYTHM, +S1, +S2 - GI/Abdominal Exam GI & Abdominal Exam: Diminished Bowel Sounds, Soft - Rectal Exam Rectal Exam: Deferred - Neurological Exam Neurological exam: Oriented x3 Results - Vital Signs Recent Vital Signs: Last Vital Signs Temp 100.5 F H 10/04/18 19:40 Pulse 83 10/04/18 21:33 Resp 22 10/04/18 21:33 BP 95/72 L 10/04/18 21:33 Pulse Ox 99 10/04/18 21:33 - Labs Result Diagrams: 10/05/18 07:12 10/06/18 07:49 Labs: Laboratory Results - last 24 hr 10/04/18 10/04/18 10/04/18 18:20 18:25 18:25 WBC 15.8 H RBC 4.66 Hgb 14.3 Hct 45.3 MCV 97.3 MCH 30.8 MCHC 31.6 L RDW 13.9 Plt Count 157 MPV 11.7 Neut % (Auto) 69.0 Lymph % (Auto) 21.9 Maury % (Auto) 8.2 Eos % (Auto) 0.0 Baso % (Auto) 0.9 Neut # (Auto) 10.9 H Lymph # (Auto) 3.5 Maury # (Auto) 1.3 H Eos # (Auto) 0.0 Baso # (Auto) 0.1 PT 12.2 INR 1.1 APTT 28 pO2 43 VBG pH 7.49 H VBG pCO2 50 VBG HCO3 34.4 VBG Total CO2 39.6 H VBG O2 Sat (Calc) 83.0 H VBG Base Excess 12.7 H VBG Potassium 3.7 Sodium 158.0 H Chloride 114.0 H Glucose 133 H Lactate 2.0 FiO2 21.0 Crit Value Called To Crit Value Called By Crit Value Read Back Blood Gas Notified Time Potassium Carbon Dioxide Anion Gap BUN Creatinine Est GFR ( Amer) Est GFR (Non-Af Amer) Random Glucose Calcium Phosphorus Magnesium Total Bilirubin AST ALT Alkaline Phosphatase Total Protein Albumin Globulin Albumin/Globulin Ratio Venous Blood Potassium 3.7 Influenza Typ A,B (EIA) 10/04/18 10/04/18 10/04/18 18:25 18:45 21:45 WBC RBC Hgb Hct MCV MCH MCHC RDW Plt Count MPV Neut % (Auto) Lymph % (Auto) Maury % (Auto) Eos % (Auto) Baso % (Auto) Neut # (Auto) Lymph # (Auto) Maury # (Auto) Eos # (Auto) Baso # (Auto) PT INR APTT pO2 62 H VBG pH 7.46 H VBG pCO2 47 VBG HCO3 31.3 VBG Total CO2 34.8 H VBG O2 Sat (Calc) 94.4 H VBG Base Excess 8.3 H VBG Potassium 2.4 L* Sodium 151 H 154.0 H Chloride 110 H 116.0 H Glucose 92 Lactate 1.1 FiO2 21.0 Crit Value Called To Dr arechiga Crit Value Called By Mariusz sanidad Crit Value Read Back Y Blood Gas Notified Time 2149 Potassium 5.9 H Carbon Dioxide 32 H Anion Gap 15 BUN 57 H Creatinine 0.9 Est GFR ( Amer) > 60 Est GFR (Non-Af Amer) > 60 Random Glucose 136 H Calcium 9.6 Phosphorus 5.1 H Magnesium 3.1 H Total Bilirubin 1.5 H AST 100 H D ALT 161 H D Alkaline Phosphatase 74 Total Protein 9.0 H Albumin 4.6 Globulin 4.4 H Albumin/Globulin Ratio 1.1 Venous Blood Potassium 2.4 L* Influenza Typ A,B (EIA) Negative for flu a/b Assessment & Plan - Assessment and Plan (Free Text) Plan: med vitals lab reviwed k 59 but on abg on lowerside hence will not supplemnt or give kayexalate Rocephin vancomycin ID consult Pulmonary consultation Aspirin Ferrous sulfate IV fluid Will resume the Lasix now Metoprolol Magnesium sulfate Magnesium hydroxide Memantine IV Zosyn Mirtazapine Telemetry monitoring Urinalysis Septic workup Status post EKG Discussed with the ER attending
[2018-10-05] MEDS: Piperacill/Tazo 2.25gm in Dex 2.25 GM/50 ML BAG IVPB SCH ×4 (00:29→17:03)
[2018-10-05 07:19] LABS: BASO # 0.1 K/uL (0.0-0.2); EOS # 0.1 K/uL (0.0-0.7); MEAN CELL VOLUME 97.3 fL (81.0-99.0); MONO # 0.5 K/uL (0.0-0.8); NEUT # 5.9 K/uL (1.8-7.0); WHITE BLOOD COUNT 10.5 K/uL (4.8-10.8)
[2018-10-05 07:28] LABS: BASO % 0.5 % (0.0-2.0); LYMPH % 37.8 % (20.0-40.0); MEAN CORPUSCULAR HEMOGLOBIN 32.3 pg (27.0-31.0); MEAN CORPUSCULAR HGB CONC 33.2 g/dL (33.0-37.0); MEAN PLATELET VOLUME 11.4 fL (7.2-11.7); MONO % 4.4 % (0.0-10.0); NEUT % 56.3 % (50.0-75.0); NRBC % 0.1 % (0.0-2.0); RBC 3.53 Mil/uL (3.80-5.20); RED CELL DISTRIBUTION WIDTH 13.7 % (11.5-14.5)
[2018-10-05 07:43] LABS: HEMOGLOBIN 11.4 g/dL (11.0-16.0)
[2018-10-05 07:45] LABS: ALB/GLOB RATIO 1.2 (1.0-2.1); ALBUMIN 3.4 g/dL (3.5-5.0); ALT/SGPT 112 U/L (9-52); AST/SGOT 34 U/L (14-36); BLOOD UREA NITROGEN 33 mg/dL (7-17); GFR NON-AFRICAN AMERICAN > 60
--- NOTE | 2018-10-05 10:31 | RAD ---
HISTORY: Sepsis Patient COMPARISON: None available. TECHNIQUE: Chest, one view. FINDINGS: Examination limited by patient obliquity. External wires/leads obscure evaluation of the underlying parenchyma. LUNGS: Biapical pleural thickening. Subtle infiltrate within the right upper lobe. Please note that chest x-ray has limited sensitivity for the detection of pulmonary masses. PLEURA: No significant pleural effusion identified. No definite pneumothorax . CARDIOVASCULAR: Heart size appears within normal limits. No significant atherosclerotic calcification present. OSSEOUS STRUCTURES: No acute osseous abnormality identified. VISUALIZED UPPER ABDOMEN: Unremarkable. OTHER FINDINGS: None. IMPRESSION: Limited study. Subtle infiltrate in the right upper lobe. Biapical pleural thickening. Study marked for PA review.
[2018-10-05] MEDS: levETIRAcetam 100 mg/ml (5ml) Oral Syringe PEG SCH ×2 (10:55→17:00)
[2018-10-05] MEDS: Ferrous Sulfate 300 mg/5 mL Liq UD PO SCH ×3 (10:56→17:00)
[2018-10-05] MEDS: Multiple Vitamins Oral Solution PEG SCH (10:57)
[2018-10-05] MEDS: Enoxaparin 40 mg Syringe SC SCH (10:58)
[2018-10-05] MEDS: Dextrose 5%/0.45% NS 1,000 ML IV SCH (12:39)
--- NOTE | 2018-10-05 13:53 | CP.PCM.CON ---
History of Present Illness - History of Present Illness History of Present Illness: INFECTIOUS DISEASE CONSULT HPI 58 y/o female is brought in by ambulance from [facility] ON 10/04/18 for fever and difficulty breathing. Patient has history of CVA and is non verbal. history obtained mainly from the chart. Pt is S/P CODE SEPSIS AND GIVEN zOSYN AND VANCOMYCIN IN THE er AFTER APPROPRIATE CULTURES. CHEST X-RAY ON ADMISSION SHOWED INFILTRATE RIGHT UPPER LOBE WITH BIAPICAL SCARRING. INFECTIOUS DISEASE CONSULTATION REQUESTED BY pmd FOR SEPSIS AND PNEUMONIA. Patient is DNR/DNI. PMH: Anemia, Anxiety, Dementia, Depression, HTN, Hypercholesterolemia, Hyperlipidemia, Seizures (UNSPECIFIED CONVULSION), TIA Denies: Arthritis, CHF, COPD, HIV, Hypothyroidism, Pneumonia, Chronic Kidney Disease, Rheumatoid Arthritis Surgical History: Endoscopy - [facility] Procedures CHANGE FEEDING DEVICE IN UP INTEST TRACT, DOCTOR PODIATRIC MEDICINE APPROACH (11/14/16) GAIT TRAINING/FUNCTIONAL AMBULATION TREATMENT USING ORTHOSIS (07/07/16) HOME MANAGEMENT TREATMENT USING ASSIST EQUIPMENT (07/07/16) INSERTION OF FEEDING DEVICE INTO STOMACH, PERC APPROACH (11/14/16) INTRODUCE OTH THROMBOLYTIC IN PERIPH VEIN, PERC (11/14/16) INTRODUCTION OF NUTRITIONAL INTO UP GI, VIA OPENING (11/14/16) THERAPEUTIC EXERCISE TREATMENT OF MUSCULOSK LOW BACK/LE (07/07/16) Family History: States: No Known Family Hx - Social History Hx Alcohol Use: No Hx Substance Use: No - Immunization History Hx Tetanus Toxoid Vaccination: No Hx Influenza Vaccination: Yes Hx Pneumococcal Vaccination: No ALLERGY; NKA Review of Systems - Review of Systems Systems not reviewed;Unavailable: Other (OLD cva / NONVERBAL.) All systems: reviewed and no additional remarkable complaints except (+VE SOB /COUGH) Past Patient History - Infectious Disease Hx of Infectious Diseases: None - Tetanus Immunizations Tetanus Immunization: Unknown - Past Medical History & Family History Past Medical History?: Yes - Past Social History Smoking Status: Never Smoked - CARDIAC Hx Cardiac Disorders: Yes Hx Congestive Heart Failure: No Hx Hypercholesterolemia: Yes Hx Hypertension: Yes - PULMONARY Hx Respiratory Disorders: No Hx Chronic Obstructive Pulmonary Disease (COPD): No Hx Pneumonia: No - NEUROLOGICAL Hx Neurological Disorder: Yes Hx Dementia: Yes Hx Seizures: Yes (UNSPECIFIED CONVULSION) Hx Transient Ischemic Attacks (TIA): Yes - HEENT Hx HEENT Problems: Yes Hx Difficulty Chewing: Yes - RENAL Hx Chronic Kidney Disease: No - ENDOCRINE/METABOLIC Hx Endocrine Disorders: No Hx Hypothyroidism: No - HEMATOLOGICAL/ONCOLOGICAL Hx Blood Disorders: Yes Hx Anemia: Yes Hx Human Immunodeficiency Virus (HIV): No - INTEGUMENTARY Hx Dermatological Problems: No - MUSCULOSKELETAL/RHEUMATOLOGICAL Hx Falls: No - GASTROINTESTINAL Hx Gastrointestinal Disorders: No Hx Gastroesophageal Reflux: No - GENITOURINARY/GYNECOLOGICAL Hx Genitourinary Disorders: No - PSYCHIATRIC Hx Substance Use: No - SURGICAL HISTORY Hx Surgeries: Yes Other/Comment: G-tube insertion - ANESTHESIA Hx Anesthesia: Yes Hx Anesthesia Reactions: No Hx Malignant Hyperthermia: No Has any member of the family had a problem w/ anesthesia?: No Meds Allergies/Adverse Reactions: Allergies Allergy/AdvReac Type Severity Reaction Status Date / Time No Known Allergies Allergy Verified 10/04/18 17:17 - Medications Medications: Current Medications Acetaminophen (Tylenol 650mg/20.3ml Solution Ud) 325 mg PEG Q6 PRN PRN Reason: Pain, moderate (4-7) Aspirin (Aspirin Chewable) 81 mg PEG DAILY [facility] Last Admin: 10/05/18 10:56 Dose: 81 mg Enoxaparin Sodium (Lovenox) 40 mg SC DAILY [facility] Last Admin: 10/05/18 10:58 Dose: 40 mg Ferrous Sulfate (Feosol Liq) 300 mg PO TID [facility] Last Admin: 10/05/18 10:56 Dose: 300 mg Furosemide (Lasix) 40 mg PEG DAILY [facility] Last Admin: 10/05/18 10:57 Dose: Not Given Vancomycin HCl 1 gm/ Sodium (Chloride) 250 mls @ 167 mls/hr IVPB Q24H [facility]; Protocol Piperacillin Sod/Tazobactam Sod (Zosyn 2.25 Gm Iv Premix) 2.25 gm in 50 mls @ 100 mls/hr IVPB Q6 [facility]; Protocol Last Admin: 10/05/18 12:39 Dose: 100 mls/hr Dextrose/Sodium Chloride (Dextrose 5%/0.45% Ns 1000 Ml) 1,000 mls @ 75 mls/hr IV .[id number] [facility] Last Admin: 10/05/18 12:39 Dose: 75 mls/hr Levetiracetam (Keppra) 500 mg PEG BID [facility] Last Admin: 10/05/18 10:55 Dose: 500 mg Memantine (Namenda) 5 mg PEG BID [facility] Last Admin: 10/05/18 10:56 Dose: 5 mg Metoprolol Tartrate (Lopressor) 25 mg PEG BID [facility] Last Admin: 10/05/18 10:57 Dose: Not Given Mirtazapine (Remeron) 15 mg PEG HS [facility] Last Admin: 10/05/18 02:33 Dose: Not Given Multivitamins/Vitamin C (Multi-Delyn Liquid) 5 ml PEG DAILY [facility] Last Admin: 10/05/18 10:57 Dose: 5 ml Potassium Chloride (Potassium Chloride Oral Soln) 40 meq PEG Q4 [facility] Stop: 10/05/18 20:01 Physical Exam - Constitutional Appears: No Acute Distress, Cachectic, Chronically Ill - Head Exam Head Exam: NORMAL INSPECTION - Eye Exam Eye Exam: PERRL. absent: Scleral icterus - ENT Exam ENT Exam: Mucous Membranes Dry - Neck Exam Neck exam: Positive for: Normal Inspection. Negative for: Meningismus - Respiratory Exam Respiratory Exam: Rhonchi (RIGHT SIDED MORE THAN THE LEFT), NORMAL BREATHING PATTERN - Cardiovascular Exam Cardiovascular Exam: Tachycardia, REGULAR RHYTHM, +S1, +S2 - GI/Abdominal Exam GI & Abdominal Exam: Normal Bowel Sounds, Soft (+VE PEG IN PLACE). absent: Orga nomegaly, Tenderness - Extremities Exam Extremities exam: Positive for: pedal pulses present. Negative for: calf tenderness, pedal edema - Neurological Exam Neurological exam: Altered - Psychiatric Exam Psychiatric exam: Flat Affect - Skin Skin Exam: Normal Color, Warm Results - Vital Signs Recent Vital Signs: Last Vital Signs Temp 98.3 F 10/05/18 07:55 Pulse 85 10/05/18 12:00 Resp 20 10/05/18 07:55 BP 96/64 L 10/05/18 10:57 Pulse Ox 96 10/05/18 07:55 - Labs Result Diagrams: 10/05/18 07:12 10/05/18 07:12 Labs: Laboratory Results - last 24 hr 10/04/18 10/04/18 10/04/18 17:33 18:20 18:25 WBC 15.8 H RBC 4.66 Hgb 14.3 Hct 45.3 MCV 97.3 MCH 30.8 MCHC 31.6 L RDW 13.9 Plt Count 157 MPV 11.7 Neut % (Auto) 69.0 Lymph % (Auto) 21.9 Levy % (Auto) 8.2 Eos % (Auto) 0.0 Baso % (Auto) 0.9 Neut # (Auto) 10.9 H Lymph # (Auto) 3.5 Levy # (Auto) 1.3 H Eos # (Auto) 0.0 Baso # (Auto) 0.1 Differential Comment PT INR APTT pO2 43 VBG pH 7.49 H VBG pCO2 50 VBG HCO3 34.4 VBG Total CO2 39.6 H VBG O2 Sat (Calc) 83.0 H VBG Base Excess 12.7 H VBG Potassium 3.7 Sodium 158.0 H Chloride 114.0 H Glucose 133 H Lactate 2.0 FiO2 21.0 Crit Value Called To Crit Value Called By Crit Value Read Back Blood Gas Notified Time Potassium Carbon Dioxide Anion Gap BUN Creatinine Est GFR ( Amer) Est GFR (Non-Af Amer) POC Glucose (mg/dL) 146 H Random Glucose Calcium Phosphorus Magnesium Total Bilirubin AST ALT Alkaline Phosphatase Total Protein Albumin Globulin Albumin/Globulin Ratio Venous Blood Potassium 3.7 Influenza Typ A,B (EIA) 10/04/18 10/04/18 10/04/18 18:25 18:25 18:45 WBC RBC Hgb Hct MCV MCH MCHC RDW Plt Count MPV Neut % (Auto) Lymph % (Auto) Levy % (Auto) Eos % (Auto) Baso % (Auto) Neut # (Auto) Lymph # (Auto) Levy # (Auto) Eos # (Auto) Baso # (Auto) Differential Comment PT 12.2 INR 1.1 APTT 28 pO2 VBG pH VBG pCO2 VBG HCO3 VBG Total CO2 VBG O2 Sat (Calc) VBG Base Excess VBG Potassium Sodium 151 H Chloride 110 H Glucose Lactate FiO2 Crit Value Called To Crit Value Called By Crit Value Read Back Blood Gas Notified Time Potassium 5.9 H Carbon Dioxide 32 H Anion Gap 15 BUN 57 H Creatinine 0.9 Est GFR ( Amer) > 60 Est GFR (Non-Af Amer) > 60 POC Glucose (mg/dL) Random Glucose 136 H Calcium 9.6 Phosphorus 5.1 H Magnesium 3.1 H Total Bilirubin 1.5 H AST 100 H D ALT 161 H D Alkaline Phosphatase 74 Total Protein 9.0 H Albumin 4.6 Globulin 4.4 H Albumin/Globulin Ratio 1.1 Venous Blood Potassium Influenza Typ A,B (EIA) Negative for flu a/b 10/04/18 10/05/18 10/05/18 21:45 07:12 07:12 WBC 10.5 RBC 3.53 L Hgb 11.4 D Hct 34.3 MCV 97.3 MCH 32.3 H MCHC 33.2 RDW 13.7 Plt Count 112 L D MPV 11.4 Neut % (Auto) 56.3 Lymph % (Auto) 37.8 Levy % (Auto) 4.4 Eos % (Auto) 1.0 Baso % (Auto) 0.5 Neut # (Auto) 5.9 Lymph # (Auto) 4.0 Levy # (Auto) 0.5 Eos # (Auto) 0.1 Baso # (Auto) 0.1 Differential Comment PT INR APTT pO2 62 H VBG pH 7.46 H VBG pCO2 47 VBG HCO3 31.3 VBG Total CO2 34.8 H VBG O2 Sat (Calc) 94.4 H VBG Base Excess 8.3 H VBG Potassium 2.4 L* Sodium 154.0 H 150 H Chloride 116.0 H 114 H Glucose 92 Lactate 1.1 FiO2 21.0 Crit Value Called To Dr arechiga Crit Value Called By [facility] Crit Value Read Back Y Blood Gas Notified Time 2148 Potassium 3.3 L Carbon Dioxide 32 H Anion Gap 7 L BUN 33 H Creatinine 0.6 L Est GFR ( Amer) > 60 Est GFR (Non-Af Amer) > 60 POC Glucose (mg/dL) Random Glucose 91 D Calcium 9.0 Phosphorus Magnesium 2.6 H Total Bilirubin 0.9 AST 34 ALT 112 H D Alkaline Phosphatase 63 Total Protein 6.2 L Albumin 3.4 L D Globulin 2.7 Albumin/Globulin Ratio 1.2 Venous Blood Potassium 2.4 L* Influenza Typ A,B (EIA) - Imaging and Cardiology Chest x-ray Status: Report reviewed by me (INFILTRATE RIGHT UPPER LOBE. bIAPICAL SCARRING. sEE FULL REPORT.) Assessment & Plan (1) Pneumonia Assessment and Plan: PANCULTURE SPUTUM gRAM STAIN AND CULTURE. cONTINUE iv zOSYN 2.25 IVPB EVERY 6 HOURLY 10/04/18. cONTINUE iv VANCOMYCIN 1 G EVERY 24 HOURLY 10/04/18. F/U vANCO TROUGH LEVEL PRIOR TO THE FOURTH DOSE. aND KEEP BETWEEN 10 AND 20 MG/l. fOLLOW-UP RENAL FUNCTIONS CLOSELY. pULMONARY TOILET. Status: Acute (2) G tube feedings Status: Acute (3) Depression Status: Chronic Priority: Medium (4) Dysarthria due to cerebrovascular accident (CVA) Status: Chronic Priority: High (5) HTN (hypertension) Status: Chronic Priority: Medium (6) Hypernatremia Assessment and Plan: iv FLUIDS AND HYDRATION PER pmd Status: Acute (7) Acute renal insufficiency Assessment and Plan: PATIENT HAS PRERENAL AZOTEMIA. cONTINUE iv FLUIDS AND HYDRATION. fOLLOW-UP RENAL FUNCTIONS CLOSELY. Status: Acute
--- NOTE | 2018-10-05 14:49 | CP.PCM.PN ---
Subjective - Date & Time of Evaluation Date of Evaluation: 10/05/18 Time of Evaluation: 09:50 - Subjective Subjective: no vomiting, no fever, no diarrhea, no shortness of breath, Status post ID consultations Patient remains confused Status post code sepsis Objective - Vital Signs/Intake and Output Vital Signs (last 24 hours): Temp Pulse Resp BP Pulse Ox 98.3 F 85 20 96/64 L 96 10/05/18 07:55 10/05/18 12:00 10/05/18 07:55 10/05/18 10:57 10/05/18 07:55 Intake and Output: 10/05/18 10/05/18 06:59 18:59 Intake Total 100 Balance 100 - Medications Medications: Current Medications Acetaminophen (Tylenol 650mg/20.3ml Solution Ud) 325 mg PEG Q6 PRN PRN Reason: Pain, moderate (4-7) Aspirin (Aspirin Chewable) 81 mg PEG DAILY [facility] Last Admin: 10/05/18 10:56 Dose: 81 mg Enoxaparin Sodium (Lovenox) 40 mg SC DAILY [facility] Last Admin: 10/05/18 10:58 Dose: 40 mg Ferrous Sulfate (Feosol Liq) 300 mg PO TID [facility] Last Admin: 10/05/18 14:28 Dose: 300 mg Furosemide (Lasix) 40 mg PEG DAILY [facility] Last Admin: 10/05/18 10:57 Dose: Not Given Vancomycin HCl 1 gm/ Sodium (Chloride) 250 mls @ 167 mls/hr IVPB Q24H [facility]; Protocol Piperacillin Sod/Tazobactam Sod (Zosyn 2.25 Gm Iv Premix) 2.25 gm in 50 mls @ 100 mls/hr IVPB Q6 [facility]; Protocol Last Admin: 10/05/18 12:39 Dose: 100 mls/hr Dextrose/Sodium Chloride (Dextrose 5%/0.45% Ns 1000 Ml) 1,000 mls @ 75 mls/hr IV .[id number] [facility] Last Admin: 10/05/18 12:39 Dose: 75 mls/hr Levetiracetam (Keppra) 500 mg PEG BID [facility] Last Admin: 10/05/18 10:55 Dose: 500 mg Memantine (Namenda) 5 mg PEG BID [facility] Last Admin: 10/05/18 10:56 Dose: 5 mg Metoprolol Tartrate (Lopressor) 25 mg PEG BID [facility] Last Admin: 10/05/18 10:57 Dose: Not Given Mirtazapine (Remeron) 15 mg PEG HS [facility] Last Admin: 10/05/18 02:33 Dose: Not Given Multivitamins/Vitamin C (Multi-Delyn Liquid) 5 ml PEG DAILY [facility] Last Admin: 10/05/18 10:57 Dose: 5 ml Potassium Chloride (Potassium Chloride Oral Soln) 40 meq PEG Q4 [facility] Stop: 10/05/18 20:01 - Labs Labs: 10/05/18 07:12 10/05/18 07:12 PT 12.2 SECONDS (9.7-12.2) 10/04/18 18:25 INR 1.1 10/04/18 18:25 APTT 28 SECONDS (21-34) 10/04/18 18:25 - Constitutional Appears: Well - Head Exam Head Exam: ATRAUMATIC, NORMAL INSPECTION, NORMOCEPHALIC - Eye Exam Eye Exam: EOMI, Normal appearance, PERRL Pupil Exam: NORMAL ACCOMODATION, PERRL - ENT Exam ENT Exam: Mucous Membranes Moist, Normal Exam - Neck Exam Neck Exam: Full ROM, Normal Inspection. 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) Status: Chronic - Assessment and Plan (Free Text) Plan: medications reviewed labs reviewed vitals reviewed aspirin chewable dextrose 5%/0.45%Ns 1000Ml feosol liq K-dur 20 meq er tab keppra lasix lopressor lovenox multi-delyn liq namenda potassium chloride oral sln remeron tylenol 650mg/20.3ml sln ud vancomycin hcl 1gm zosyn 2.25gm Iv kcl supplemntation Chest x-ray shows right upper lobe apical scarring with infiltrate Sputum Gram stain and culture Continue IV Zosyn and IV vancomycin Vanco trough level Monitor the renal functions Pulmonary toilet Monitor prerenal azotemia IV fluid for high sodium CBC CMP tomorrow morning
[2018-10-05] MEDS ORDERED: Potassium Chloride 20 mEq ER Tab PO SCH (16:45)
[2018-10-05] MEDS: Potassium Chloride 20 mEq/15 ml LIQ UD PEG SCH ×2 (16:51→22:25)
[2018-10-06] MEDS: Dextrose 5%/0.45% NS 1,000 ML IV SCH (03:25)
[2018-10-06] MEDS: Piperacill/Tazo 2.25gm in Dex 2.25 GM/50 ML BAG IVPB SCH ×5 (05:00→23:50)
[2018-10-06 08:30] LABS: BLOOD UREA NITROGEN 20 mg/dL (7-17); CALCIUM 9.2 mg/dl (8.6-10.4); GFR NON-AFRICAN AMERICAN > 60
[2018-10-06] MEDS: levETIRAcetam 100 mg/ml (5ml) Oral Syringe PEG SCH ×2 (10:29→18:48)
[2018-10-06] MEDS: Enoxaparin 40 mg Syringe SC SCH (10:29)
[2018-10-06] MEDS: Multiple Vitamins Oral Solution PEG SCH (10:29)
[2018-10-06] MEDS: Ferrous Sulfate 300 mg/5 mL Liq UD PO SCH ×3 (10:29→18:47)
--- NOTE | 2018-10-06 11:08 | CP.PCM.PN ---
Subjective - Date & Time of Evaluation Date of Evaluation: 10/06/18 Time of Evaluation: 11:08 - Subjective Subjective: AFEBRILE VSS SEEN BY PULMONARY. NONVERBAL, AWAKE, WEAK. TOLERATING IV ABX LABS ; REVIEWED Objective - Vital Signs/Intake and Output Vital Signs (last 24 hours): Temp Pulse Resp BP Pulse Ox 98.4 F 86 20 112/74 94 L 10/06/18 08:31 10/06/18 08:31 10/06/18 08:31 10/06/18 10:28 10/06/18 08:31 Intake and Output: 10/06/18 10/06/18 06:59 18:59 Intake Total 2280 Balance 2280 - Medications Medications: Current Medications Acetaminophen (Tylenol 650mg/20.3ml Solution Ud) 325 mg PEG Q6 PRN PRN Reason: Pain, moderate (4-7) Aspirin (Aspirin Chewable) 81 mg PEG DAILY [facility] Last Admin: 10/06/18 10:29 Dose: 81 mg Enoxaparin Sodium (Lovenox) 40 mg SC DAILY [facility] Last Admin: 10/06/18 10:29 Dose: 40 mg Ferrous Sulfate (Feosol Liq) 300 mg PO TID [facility] Last Admin: 10/06/18 10:29 Dose: 300 mg Furosemide (Lasix) 40 mg PEG DAILY [facility] Last Admin: 10/06/18 10:28 Dose: 40 mg Vancomycin HCl 1 gm/ Sodium (Chloride) 250 mls @ 167 mls/hr IVPB Q24H [facility]; Protocol Last Admin: 10/05/18 17:20 Dose: 167 mls/hr Piperacillin Sod/Tazobactam Sod (Zosyn 2.25 Gm Iv Premix) 2.25 gm in 50 mls @ 100 mls/hr IVPB Q6 [facility]; Protocol Last Admin: 10/06/18 05:00 Dose: 100 mls/hr Dextrose/Sodium Chloride (Dextrose 5%/0.45% Ns 1000 Ml) 1,000 mls @ 75 mls/hr IV .[id number] [facility] Last Admin: 10/06/18 03:25 Dose: 75 mls/hr Levetiracetam (Keppra) 500 mg PEG BID [facility] Last Admin: 10/06/18 10:29 Dose: 500 mg Memantine (Namenda) 5 mg PEG BID [facility] Last Admin: 10/06/18 10:28 Dose: 5 mg Metoprolol Tartrate (Lopressor) 25 mg PEG BID [facility] Last Admin: 10/06/18 10:28 Dose: 25 mg Mirtazapine (Remeron) 15 mg PEG HS [facility] Last Admin: 10/05/18 22:25 Dose: 15 mg Multivitamins/Vitamin C (Multi-Delyn Liquid) 5 ml PEG DAILY [facility] Last Admin: 10/06/18 10:29 Dose: 5 ml Potassium Chloride (K-Dur 20 Meq Er Tab) 40 meq PO BRK [facility] Last Admin: 10/05/18 17:01 Dose: Not Given - Labs Labs: 10/05/18 07:12 10/06/18 07:49 PT 12.2 SECONDS (9.7-12.2) 10/04/18 18:25 INR 1.1 10/04/18 18:25 APTT 28 SECONDS (21-34) 10/04/18 18:25 - Constitutional Appears: No Acute Distress, Cachectic, Chronically Ill - Head Exam Head Exam: NORMAL INSPECTION - Eye Exam Eye Exam: EOMI, PERRL - ENT Exam ENT Exam: Mucous Membranes Dry Additional comments: POOR ORAL HYGIENE. - Neck Exam Neck Exam: Normal Inspection. absent: Meningismus - Respiratory Exam Respiratory Exam: Rhonchi (RT SIDE), NORMAL BREATHING PATTERN - Cardiovascular Exam Cardiovascular Exam: REGULAR RHYTHM, +S1, +S2 - GI/Abdominal Exam GI & Abdominal Exam: Soft, Normal Bowel Sounds (+VE PEG) - Extremities Exam Extremities Exam: Normal Capillary Refill. 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 CONTINUE iv VANCOMYCIN 1 G EVERY 24 HOURLY 10/04/18. F/U vANCO TROUGH LEVEL PRIOR TO THE FOURTH DOSE. aND KEEP BETWEEN 10 AND 20 MG/l. fOLLOW-UP RENAL FUNCTIONS CLOSELY. PULMONARY TOILET.
[2018-10-06] MEDS ORDERED: Petrolatum Oint Foilpak (5 gm) TOP PRN (13:41)
--- NOTE | 2018-10-06 14:40 | CP.PCM.CON ---
History of Present Illness - History of Present Illness History of Present Illness: CHART REVIEWED. PT SEEN AND EXAMINED. 58 YO W FEMALE WITH A HX CVA +PEG, HTN, SZ, ANEMIA, ANXIETY TRANS FROM NH WITH INCREASED MOD SOB AT REST X 1 DAY +FEVER NOTED. NO FURTHER HX AVAILABLE. Review of Systems - Review of Systems Systems not reviewed;Unavailable: Altered Mental Status All systems: reviewed and no additional remarkable complaints except Past Patient History - Infectious Disease Hx of Infectious Diseases: None - Tetanus Immunizations Tetanus Immunization: Unknown - Past Medical History & Family History Past Medical History?: Yes Past Family History: Reviewed and not pertinent - Past Social History Smoking Status: Never Smoked - CARDIAC Hx Cardiac Disorders: Yes Hx Hypercholesterolemia: Yes Hx Hypertension: Yes - PULMONARY Hx Respiratory Disorders: No Hx Chronic Obstructive Pulmonary Disease (COPD): No Hx Pneumonia: No - NEUROLOGICAL HX Cerebrovascular Accident: Yes - HEENT Hx HEENT Problems: Yes Hx Difficulty Chewing: Yes - RENAL Hx Chronic Kidney Disease: No - ENDOCRINE/METABOLIC Hx Endocrine Disorders: No Hx Hypothyroidism: No - HEMATOLOGICAL/ONCOLOGICAL Hx Blood Disorders: Yes Hx Anemia: Yes Hx Human Immunodeficiency Virus (HIV): No - INTEGUMENTARY Hx Dermatological Problems: No - MUSCULOSKELETAL/RHEUMATOLOGICAL Hx Falls: No - GASTROINTESTINAL Hx Gastrointestinal Disorders: No Hx Gastroesophageal Reflux: No - GENITOURINARY/GYNECOLOGICAL Hx Genitourinary Disorders: No - PSYCHIATRIC Hx Substance Use: No - SURGICAL HISTORY Hx Surgeries: Yes Other/Comment: G-tube insertion - ANESTHESIA Hx Anesthesia: Yes Hx Anesthesia Reactions: No Hx Malignant Hyperthermia: No Has any member of the family had a problem w/ anesthesia?: No Meds Allergies/Adverse Reactions: Allergies Allergy/AdvReac Type Severity Reaction Status Date / Time No Known Allergies Allergy Verified 10/04/18 17:17 - Medications Medications: Current Medications Acetaminophen (Tylenol 650mg/20.3ml Solution Ud) 325 mg PEG Q6 PRN PRN Reason: Pain, moderate (4-7) Aspirin (Aspirin Chewable) 81 mg PEG DAILY [facility] Last Admin: 10/06/18 10:29 Dose: 81 mg Emollient Ointment (Vaseline Oint) 5 gm TOP Q12H PRN PRN Reason: Dry skin Enoxaparin Sodium (Lovenox) 40 mg SC DAILY [facility] Last Admin: 10/06/18 10:29 Dose: 40 mg Ferrous Sulfate (Feosol Liq) 300 mg PO TID [facility] Last Admin: 10/06/18 13:32 Dose: 300 mg Furosemide (Lasix) 40 mg PEG DAILY [facility] Last Admin: 10/06/18 10:28 Dose: 40 mg Vancomycin HCl 1 gm/ Sodium (Chloride) 250 mls @ 167 mls/hr IVPB Q24H [facility]; [facility] Last Admin: 10/05/18 17:20 Dose: 167 mls/hr Piperacillin Sod/Tazobactam Sod (Zosyn 2.25 Gm Iv Premix) 2.25 gm in 50 mls @ 100 mls/hr IVPB Q6 [facility]; Protocol Last Admin: 10/06/18 13:00 Dose: 100 mls/hr Dextrose/Sodium Chloride (Dextrose 5%/0.45% Ns 1000 Ml) 1,000 mls @ 75 mls/hr IV .[id number] [facility] Last Admin: 10/06/18 03:25 Dose: 75 mls/hr Levetiracetam (Keppra) 500 mg PEG BID [facility] Last Admin: 10/06/18 10:29 Dose: 500 mg Memantine (Namenda) 5 mg PEG BID [facility] Last Admin: 10/06/18 10:28 Dose: 5 mg Metoprolol Tartrate (Lopressor) 25 mg PEG BID [facility] Last Admin: 10/06/18 10:28 Dose: 25 mg Mirtazapine (Remeron) 15 mg PEG HS [facility] Last Admin: 10/05/18 22:25 Dose: 15 mg Multivitamins/Vitamin C (Multi-Delyn Liquid) 5 ml PEG DAILY [facility] Last Admin: 10/06/18 10:29 Dose: 5 ml Potassium Chloride (Potassium Chloride Oral Soln) 20 meq PO DAILY [facility] Stop: 10/09/18 10:01 Physical Exam - Constitutional Appears: Confused, Cachectic, Chronically Ill - Head Exam Head Exam: ATRAUMATIC, NORMOCEPHALIC - Eye Exam Eye Exam: EOMI, Normal appearance - ENT Exam ENT Exam: Mucous Membranes Moist - Neck Exam Neck exam: Positive for: Normal Inspection - Respiratory Exam Respiratory Exam: Decreased Breath Sounds - Cardiovascular Exam Cardiovascular Exam: RRR, +S1, +S2 - GI/Abdominal Exam GI & Abdominal Exam: Soft Additional comments: +PEG - Rectal Exam Rectal Exam: Deferred - Extremities Exam Extremities exam: Negative for: pedal edema - Back Exam Back exam: NORMAL INSPECTION - Neurological Exam Additional comments: AWAKE., RIGHT KENNEDI. NOT FOLLOWING. Results - Vital Signs Recent Vital Signs: Last Vital Signs Temp 98.4 F 10/06/18 08:31 Pulse 83 10/06/18 12:00 Resp 20 10/06/18 08:31 BP 112/74 10/06/18 10:28 Pulse Ox 94 L 10/06/18 08:31 - Labs Result Diagrams: 10/05/18 07:12 10/06/18 07:49 Labs: Laboratory Results - last 24 hr 10/06/18 07:49 Sodium 147 Potassium 4.1 Chloride 120 H Carbon Dioxide 25 Anion Gap 6 L BUN 20 H Creatinine 0.6 L Est GFR ( Amer) > 60 Est GFR (Non-Af Amer) > 60 Random Glucose 134 H D Calcium 9.2 Assessment & Plan (1) Anemia Status: Acute (2) Right hemiplegia Status: Acute (3) Anxiety Status: Acute (4) Seizure Status: Acute (5) Acute renal insufficiency Status: Acute (6) Pneumonia Status: Acute (7) 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 CONT IV AB. PULM TOILET, NEB BD., MONITOR O2 SAT. CXR REVIEWED. ON PEG FEEDINGS. GI/DVT PROPHYLAXIS. PROG POOR. DNR/ DNI NOTED. DISCUSSED WITH STAFF AT LENGTH.
--- NOTE | 2018-10-06 17:50 | CP.PCM.PN ---
Subjective - Date & Time of Evaluation Date of Evaluation: 10/06/18 - Subjective Subjective: Patient was seen today No nausea No vomiting No diarrhea No fever No shortness of breath No headaches Objective - Vital Signs/Intake and Output Vital Signs (last 24 hours): Temp Pulse Resp BP Pulse Ox 98.0 F 89 20 91/61 L 97 10/06/18 16:00 10/06/18 16:00 10/06/18 16:00 10/06/18 16:00 10/06/18 16:00 Intake and Output: 10/06/18 10/06/18 06:59 18:59 Intake Total 2280 1100 Balance 2280 1100 - Medications Medications: Current Medications Acetaminophen (Tylenol 650mg/20.3ml Solution Ud) 325 mg PEG Q6 PRN PRN Reason: Pain, moderate (4-7) Aspirin (Aspirin Chewable) 81 mg PEG DAILY [facility] Last Admin: 10/06/18 10:29 Dose: 81 mg Emollient Ointment (Vaseline Oint) 5 gm TOP Q12H PRN PRN Reason: Dry skin Enoxaparin Sodium (Lovenox) 40 mg SC DAILY [facility] Last Admin: 10/06/18 10:29 Dose: 40 mg Ferrous Sulfate (Feosol Liq) 300 mg PO TID [facility] Last Admin: 10/06/18 13:32 Dose: 300 mg Furosemide (Lasix) 40 mg PEG DAILY [facility] Last Admin: 10/06/18 10:28 Dose: 40 mg Vancomycin HCl 1 gm/ Sodium (Chloride) 250 mls @ 167 mls/hr IVPB Q24H [facility]; Protocol Last Admin: 10/05/18 17:20 Dose: 167 mls/hr Piperacillin Sod/Tazobactam Sod (Zosyn 2.25 Gm Iv Premix) 2.25 gm in 50 mls @ 100 mls/hr IVPB Q6 [facility]; Protocol Last Admin: 10/06/18 13:00 Dose: 100 mls/hr Dextrose/Sodium Chloride (Dextrose 5%/0.45% Ns 1000 Ml) 1,000 mls @ 75 mls/hr IV .[id number] [facility] Last Admin: 10/06/18 03:25 Dose: 75 mls/hr Levetiracetam (Keppra) 500 mg PEG BID [facility] Last Admin: 10/06/18 10:29 Dose: 500 mg Memantine (Namenda) 5 mg PEG BID [facility] Last Admin: 10/06/18 10:28 Dose: 5 mg Metoprolol Tartrate (Lopressor) 25 mg PEG BID [facility] Last Admin: 10/06/18 10:28 Dose: 25 mg Mirtazapine (Remeron) 15 mg PEG HS [facility] Last Admin: 10/05/18 22:25 Dose: 15 mg Multivitamins/Vitamin C (Multi-Delyn Liquid) 5 ml PEG DAILY [facility] Last Admin: 10/06/18 10:29 Dose: 5 ml Potassium Chloride (Potassium Chloride Oral Soln) 20 meq PO DAILY [facility] Stop: 10/09/18 10:01 - Labs Labs: 10/05/18 07:12 10/06/18 07:49 PT 12.2 SECONDS (9.7-12.2) 10/04/18 18:25 INR 1.1 10/04/18 18:25 APTT 28 SECONDS (21-34) 10/04/18 18:25 - Constitutional Appears: Well - Head Exam Head Exam: ATRAUMATIC, NORMAL INSPECTION, NORMOCEPHALIC - Eye Exam Eye Exam: EOMI, Normal appearance, PERRL Pupil Exam: NORMAL ACCOMODATION, PERRL - ENT Exam ENT Exam: Mucous Membranes Moist, Normal Exam - Neck Exam Neck Exam: Full ROM, Normal Inspection. absent: Lymphadenopathy - Respiratory Exam Respiratory Exam: Decreased Breath Sounds - Cardiovascular Exam Cardiovascular Exam: REGULAR RHYTHM, +S1, +S2 - GI/Abdominal Exam GI & Abdominal Exam: Soft, Diminished Bowel Sounds - Rectal Exam Rectal Exam: Deferred - Neurological Exam Neurological Exam: Oriented x3 Assessment and Plan (1) Acute renal insufficiency Status: Acute (2) Hypernatremia Status: Acute (3) Pneumonia Status: Acute (4) G tube feedings Status: Acute (5) PEG tube malfunction Status: Acute (6) Acute CVA (cerebrovascular accident) Status: Chronic (7) Dysarthria due to cerebrovascular accident (CVA) Status: Chronic - Assessment and Plan (Free Text) Plan: Aspirin chewable Dextrose Melanie liquid Keppra Lasix Lopressor Lovenox Multi-Tylenol liquid Namenda Potassium chloride Remeron Tylenol Vancomycin Vaseline ointment Zosyn Medications reviewed Labs reviewed Vitals reviewed
[2018-10-07] MEDS: Dextrose 5%/0.45% NS 1,000 ML IV SCH ×2 (06:25→17:51)
[2018-10-07] MEDS: Piperacill/Tazo 2.25gm in Dex 2.25 GM/50 ML BAG IVPB SCH ×3 (06:26→17:53)
[2018-10-07] MEDS: Potassium Chloride 20 mEq/15 ml LIQ UD PO SCH (10:21)
[2018-10-07] MEDS: Ferrous Sulfate 300 mg/5 mL Liq UD PO SCH ×3 (10:21→18:02)
[2018-10-07] MEDS: Enoxaparin 40 mg Syringe SC SCH (10:21)
[2018-10-07] MEDS: levETIRAcetam 100 mg/ml (5ml) Oral Syringe PEG SCH ×2 (10:22→18:02)
[2018-10-07] MEDS: Multiple Vitamins Oral Solution PEG SCH (10:22)
--- NOTE | 2018-10-07 12:52 | CP.PCM.PN ---
Subjective - Date & Time of Evaluation Date of Evaluation: 10/07/18 Time of Evaluation: 09:26 - Subjective Subjective: no vomitting no fever no sob pt reians confused; lying in bed trying to say something not agitated Objective - Vital Signs/Intake and Output Vital Signs (last 24 hours): Temp Pulse Resp BP Pulse Ox 97.3 F L 79 18 95/62 L 95 10/07/18 07:00 10/07/18 12:00 10/07/18 07:00 10/07/18 10:22 10/07/18 07:00 - Medications Medications: Current Medications Acetaminophen (Tylenol 650mg/20.3ml Solution Ud) 325 mg PEG Q6 PRN PRN Reason: Pain, moderate (4-7) Aspirin (Aspirin Chewable) 81 mg PEG DAILY [facility] Last Admin: 10/07/18 10:21 Dose: 81 mg Emollient Ointment (Vaseline Oint) 5 gm TOP Q12H PRN PRN Reason: Dry skin Last Admin: 10/07/18 10:22 Dose: 5 gm Enoxaparin Sodium (Lovenox) 40 mg SC DAILY [facility] Last Admin: 10/07/18 10:21 Dose: 40 mg Ferrous Sulfate (Feosol Liq) 300 mg PO TID [facility] Last Admin: 10/07/18 10:21 Dose: 300 mg Furosemide (Lasix) 40 mg PEG DAILY [facility] Last Admin: 10/07/18 10:22 Dose: Not Given Vancomycin HCl 1 gm/ Sodium (Chloride) 250 mls @ 167 mls/hr IVPB Q24H [facility]; Protocol Last Admin: 10/06/18 18:47 Dose: 167 mls/hr Piperacillin Sod/Tazobactam Sod (Zosyn 2.25 Gm Iv Premix) 2.25 gm in 50 mls @ 100 mls/hr IVPB Q6 [facility]; Protocol Last Admin: 10/07/18 06:26 Dose: 100 mls/hr Dextrose/Sodium Chloride (Dextrose 5%/0.45% Ns 1000 Ml) 1,000 mls @ 75 mls/hr IV .[id number] [facility] Last Admin: 10/07/18 06:25 Dose: 75 mls/hr Levetiracetam (Keppra) 500 mg PEG BID [facility] Last Admin: 10/07/18 10:22 Dose: 500 mg Memantine (Namenda) 5 mg PEG BID [facility] Last Admin: 10/07/18 10:21 Dose: 5 mg Metoprolol Tartrate (Lopressor) 25 mg PEG BID [facility] Last Admin: 10/07/18 10:22 Dose: Not Given Mirtazapine (Remeron) 15 mg PEG HS [facility] Last Admin: 10/06/18 21:06 Dose: 15 mg Multivitamins/Vitamin C (Multi-Delyn Liquid) 5 ml PEG DAILY [facility] Last Admin: 10/07/18 10:22 Dose: 5 ml Potassium Chloride (Potassium Chloride Oral Soln) 20 meq PO DAILY [facility] Stop: 10/09/18 10:01 Last Admin: 10/07/18 10:21 Dose: 20 meq - Labs Labs: 10/05/18 07:12 10/06/18 07:49 PT 12.2 SECONDS (9.7-12.2) 10/04/18 18:25 INR 1.1 10/04/18 18:25 APTT 28 SECONDS (21-34) 10/04/18 18:25 - Constitutional Appears: Well - Head Exam Head Exam: ATRAUMATIC, NORMAL INSPECTION, NORMOCEPHALIC - Eye Exam Eye Exam: EOMI, Normal appearance, PERRL Pupil Exam: NORMAL ACCOMODATION, PERRL - ENT Exam ENT Exam: Mucous Membranes Moist, Normal Exam - Neck Exam Neck Exam: Full ROM, Normal Inspection. absent: Lymphadenopathy - Respiratory Exam Respiratory Exam: Decreased Breath Sounds - Cardiovascular Exam Cardiovascular Exam: REGULAR RHYTHM, +S1, +S2 - GI/Abdominal Exam GI & Abdominal Exam: Soft, Diminished Bowel Sounds - Rectal Exam Rectal Exam: Deferred - Neurological Exam Neurological Exam: Oriented x3 Assessment and Plan (1) Acute renal insufficiency Status: Acute (2) Hypernatremia Status: Acute (3) Pneumonia Status: Acute (4) G tube feedings Status: Acute (5) PEG tube malfunction Status: Acute (6) Acute CVA (cerebrovascular accident) Status: Chronic (7) Dysarthria due to cerebrovascular accident (CVA) Status: Chronic - Assessment and Plan (Free Text) Plan: Aspirin chewable Dextrose 5% Failed so liquid Keppra Lasix Lopressor Lovenox Multi-thousand liquid Namenda Potassium chloride oral solution Remeron Tylenol 650 mg - 20.3 mL solution Vancomycin hcl Vaseline ointment Zosyn Medications reviewed Labs reviewed Vitals reviewed Continue pulmonary toilet Pulmonary follow-up IV antibiotic Patient is confused Patient is afebrile Blood pressure controlled Chest x-ray reviewed 443 which is limited study with infiltrating right upper lobe Possible discharge Tuesday back to the rehab
--- NOTE | 2018-10-07 15:25 | CP.PCM.PN ---
Subjective - Date & Time of Evaluation Date of Evaluation: 10/07/18 Time of Evaluation: 15:23 - Subjective Subjective: PT IN NO DISTRESS. ROS; UNOBTAINABLE. Objective - Vital Signs/Intake and Output Vital Signs (last 24 hours): Temp Pulse Resp BP Pulse Ox 97.3 F L 79 18 95/62 L 95 10/07/18 07:00 10/07/18 12:00 10/07/18 07:00 10/07/18 10:22 10/07/18 07:00 - Medications Medications: Current Medications Acetaminophen (Tylenol 650mg/20.3ml Solution Ud) 325 mg PEG Q6 PRN PRN Reason: Pain, moderate (4-7) Aspirin (Aspirin Chewable) 81 mg PEG DAILY [facility] Last Admin: 10/07/18 10:21 Dose: 81 mg Emollient Ointment (Vaseline Oint) 5 gm TOP Q12H PRN PRN Reason: Dry skin Last Admin: 10/07/18 10:22 Dose: 5 gm Enoxaparin Sodium (Lovenox) 40 mg SC DAILY [facility] Last Admin: 10/07/18 10:21 Dose: 40 mg Ferrous Sulfate (Feosol Liq) 300 mg PO TID [facility] Last Admin: 10/07/18 13:08 Dose: 300 mg Furosemide (Lasix) 40 mg PEG DAILY [facility] Last Admin: 10/07/18 10:22 Dose: Not Given Vancomycin HCl 1 gm/ Sodium (Chloride) 250 mls @ 167 mls/hr IVPB Q24H [facility]; Protocol Last Admin: 10/06/18 18:47 Dose: 167 mls/hr Piperacillin Sod/Tazobactam Sod (Zosyn 2.25 Gm Iv Premix) 2.25 gm in 50 mls @ 100 mls/hr IVPB Q6 [facility]; Protocol Last Admin: 10/07/18 12:56 Dose: 100 mls/hr Dextrose/Sodium Chloride (Dextrose 5%/0.45% Ns 1000 Ml) 1,000 mls @ 75 mls/hr IV .[id number] [facility] Last Admin: 10/07/18 06:25 Dose: 75 mls/hr Levetiracetam (Keppra) 500 mg PEG BID [facility] Last Admin: 10/07/18 10:22 Dose: 500 mg Memantine (Namenda) 5 mg PEG BID [facility] Last Admin: 10/07/18 10:21 Dose: 5 mg Metoprolol Tartrate (Lopressor) 25 mg PEG BID [facility] Last Admin: 10/07/18 10:22 Dose: Not Given Mirtazapine (Remeron) 15 mg PEG HS [facility] Last Admin: 10/06/18 21:06 Dose: 15 mg Multivitamins/Vitamin C (Multi-Delyn Liquid) 5 ml PEG DAILY [facility] Last Admin: 10/07/18 10:22 Dose: 5 ml Potassium Chloride (Potassium Chloride Oral Soln) 20 meq PO DAILY [facility] Stop: 10/09/18 10:01 Last Admin: 10/07/18 10:21 Dose: 20 meq - Labs Labs: 10/05/18 07:12 10/06/18 07:49 PT 12.2 SECONDS (9.7-12.2) 10/04/18 18:25 INR 1.1 10/04/18 18:25 APTT 28 SECONDS (21-34) 10/04/18 18:25 - Constitutional Appears: Cachectic, Chronically Ill - Head Exam Head Exam: ATRAUMATIC, NORMOCEPHALIC - Eye Exam Eye Exam: EOMI, Normal appearance - ENT Exam ENT Exam: Mucous Membranes Moist - Neck Exam Neck Exam: Normal Inspection - Respiratory Exam Respiratory Exam: Decreased Breath Sounds - Cardiovascular Exam Cardiovascular Exam: RRR, +S1, +S2 - GI/Abdominal Exam GI & Abdominal Exam: Soft. absent: Tenderness Additional comments: PEG - Rectal Exam Rectal Exam: Deferred - Extremities Exam Extremities Exam: absent: Calf Tenderness, Pedal Edema - Back Exam Back Exam: absent: CVA tenderness (L), CVA tenderness (R) - Neurological Exam Additional comments: NONVERBAL. - Skin Skin Exam: absent: Rash Assessment and Plan (1) Anemia Status: Acute (2) Right hemiplegia Status: Acute (3) Anxiety Status: Acute (4) Seizure Status: Acute (5) Acute renal insufficiency Status: Acute (6) Pneumonia Status: Acute (7) Dysarthria due to cerebrovascular accident (CVA) Status: Chronic (8) HTN (hypertension) Status: Chronic - Assessment and Plan (Free Text) Assessment: RESP STATUS UNLABOERD., CONT PULM TOILET., NEB BD., MONITOR O2 SAT. CXR REVIEWED. AFEBRILE ON AB. ON PEG FEEDINGS., DISCUSSED WITH STAFF.
[2018-10-08] MEDS: Piperacill/Tazo 2.25gm in Dex 2.25 GM/50 ML BAG IVPB SCH ×5 (00:43→23:48)
[2018-10-08] MEDS: Dextrose 5%/0.45% NS 1,000 ML IV SCH ×3 (06:00→23:47)
[2018-10-08] MEDS: Ferrous Sulfate 300 mg/5 mL Liq UD PO SCH ×3 (09:38→17:53)
[2018-10-08] MEDS: Enoxaparin 40 mg Syringe SC SCH (09:38)
[2018-10-08] MEDS: Potassium Chloride 20 mEq/15 ml LIQ UD PO SCH (09:43)
[2018-10-08] MEDS: levETIRAcetam 100 mg/ml (5ml) Oral Syringe PEG SCH ×2 (09:45→17:52)
[2018-10-08] MEDS: Multiple Vitamins Oral Solution PEG SCH (09:45)
--- NOTE | 2018-10-08 10:06 | CP.PCM.PN ---
Subjective - Date & Time of Evaluation Date of Evaluation: 10/08/18 - Subjective Subjective: Patient seen and examined today No nausea No vomiting No fever No diarrhea No dizziness No shortness of breath Objective - Vital Signs/Intake and Output Vital Signs (last 24 hours): Temp Pulse Resp BP Pulse Ox 98.6 F 81 20 110/70 96 10/08/18 08:07 10/08/18 08:07 10/08/18 08:07 10/08/18 09:41 10/08/18 08:07 Intake and Output: 10/08/18 10/08/18 06:59 18:59 Intake Total 920 Output Total 1150 Balance -230 - Medications Medications: Current Medications Acetaminophen (Tylenol 650mg/20.3ml Solution Ud) 325 mg PEG Q6 PRN PRN Reason: Pain, moderate (4-7) Aspirin (Aspirin Chewable) 81 mg PEG DAILY [facility] Last Admin: 10/08/18 09:42 Dose: 81 mg Emollient Ointment (Vaseline Oint) 5 gm TOP Q12H PRN PRN Reason: Dry skin Last Admin: 10/07/18 10:22 Dose: 5 gm Enoxaparin Sodium (Lovenox) 40 mg SC DAILY [facility] Last Admin: 10/08/18 09:38 Dose: 40 mg Ferrous Sulfate (Feosol Liq) 300 mg PO TID [facility] Last Admin: 10/08/18 09:38 Dose: 300 mg Furosemide (Lasix) 40 mg PEG DAILY [facility] Last Admin: 10/08/18 09:41 Dose: Not Given Vancomycin HCl 1 gm/ Sodium (Chloride) 250 mls @ 167 mls/hr IVPB Q24H [facility]; Pr otocol Last Admin: 10/07/18 17:59 Dose: 167 mls/hr Piperacillin Sod/Tazobactam Sod (Zosyn 2.25 Gm Iv Premix) 2.25 gm in 50 mls @ 100 mls/hr IVPB Q6 [facility]; Protocol Last Admin: 10/08/18 05:54 Dose: 100 mls/hr Dextrose/Sodium Chloride (Dextrose 5%/0.45% Ns 1000 Ml) 1,000 mls @ 75 mls/hr IV .[id number] [facility] Last Admin: 10/08/18 07:00 Dose: 75 mls/hr Levetiracetam (Keppra) 500 mg PEG BID [facility] Last Admin: 10/08/18 09:45 Dose: 500 mg Memantine (Namenda) 5 mg PEG BID [facility] Last Admin: 10/08/18 09:42 Dose: 5 mg Metoprolol Tartrate (Lopressor) 25 mg PEG BID [facility] Last Admin: 10/08/18 09:39 Dose: 25 mg Mirtazapine (Remeron) 15 mg PEG HS [facility] Last Admin: 10/07/18 21:33 Dose: 15 mg Multivitamins/Vitamin C (Multi-Delyn Liquid) 5 ml PEG DAILY [facility] Last Admin: 10/08/18 09:45 Dose: 5 ml Potassium Chloride (Potassium Chloride Oral Soln) 20 meq PO DAILY [facility] Stop: 10/09/18 10:01 Last Admin: 10/08/18 09:43 Dose: 20 meq - Labs Labs: 10/05/18 07:12 10/06/18 07:49 PT 12.2 SECONDS (9.7-12.2) 10/04/18 18:25 INR 1.1 10/04/18 18:25 APTT 28 SECONDS (21-34) 10/04/18 18:25 - Constitutional Appears: Well - Head Exam Head Exam: ATRAUMATIC, NORMAL INSPECTION, NORMOCEPHALIC - Eye Exam Eye Exam: EOMI, Normal appearance, PERRL Pupil Exam: NORMAL ACCOMODATION, PERRL - ENT Exam ENT Exam: Mucous Membranes Moist, Normal Exam - Neck Exam Neck Exam: Full ROM, Normal Inspection. absent: Lymphadenopathy - Respiratory Exam Respiratory Exam: Decreased Breath Sounds - Cardiovascular Exam Cardiovascular Exam: REGULAR RHYTHM, +S1, +S2 - GI/Abdominal Exam GI & Abdominal Exam: Soft, Hypoactive Bowel Sounds - Rectal Exam Rectal Exam: Deferred - Neurological Exam Neurological Exam: Oriented x3 Assessment and Plan - Assessment and Plan (Free Text) Plan: aspirin chewable feosol liq keprra lasix lopresor lovenox mult-delyn liquid nameda potassium chloride oral sln remeron tylenol vacomycin vaselin oint zosyn medications, vitals, labs reviewed
--- NOTE | 2018-10-08 12:29 | CP.PCM.PN ---
Subjective - Date & Time of Evaluation Date of Evaluation: 10/08/18 Time of Evaluation: 12:28 - Subjective Subjective: AFEBRILE VSS NONVERBAL, AWAKE, WEAK. TOLERATING IV ABX LABS ; REVIEWED Objective - Vital Signs/Intake and Output Vital Signs (last 24 hours): Temp Pulse Resp BP Pulse Ox 98.6 F 86 20 110/70 96 10/08/18 08:07 10/08/18 10:00 10/08/18 08:07 10/08/18 09:41 10/08/18 08:07 Intake and Output: 10/08/18 10/08/18 06:59 18:59 Intake Total 920 Output Total 1150 Balance -230 - Medications Medications: Current Medications Acetaminophen (Tylenol 650mg/20.3ml Solution Ud) 325 mg PEG Q6 PRN PRN Reason: Pain, moderate (4-7) Aspirin (Aspirin Chewable) 81 mg PEG DAILY [facility] Last Admin: 10/08/18 09:42 Dose: 81 mg Emollient Ointment (Vaseline Oint) 5 gm TOP Q12H PRN PRN Reason: Dry skin Last Admin: 10/07/18 10:22 Dose: 5 gm Enoxaparin Sodium (Lovenox) 40 mg SC DAILY [facility] Last Admin: 10/08/18 09:38 Dose: 40 mg Ferrous Sulfate (Feosol Liq) 300 mg PO TID [facility] Last Admin: 10/08/18 09:38 Dose: 300 mg Furosemide (Lasix) 40 mg PEG DAILY [facility] Last Admin: 10/08/18 09:41 Dose: Not Given Vancomycin HCl 1 gm/ Sodium (Chloride) 250 mls @ 167 mls/hr IVPB Q24H [facility]; Protocol Last Admin: 10/07/18 17:59 Dose: 167 mls/hr Piperacillin Sod/Tazobactam Sod (Zosyn 2.25 Gm Iv Premix) 2.25 gm in 50 mls @ 100 mls/hr IVPB Q6 [facility]; Protocol Last Admin: 10/08/18 11:04 Dose: 100 mls/hr Dextrose/Sodium Chloride (Dextrose 5%/0.45% Ns 1000 Ml) 1,000 mls @ 75 mls/hr IV .[id number] [facility] Last Admin: 10/08/18 07:00 Dose: 75 mls/hr Levetiracetam (Keppra) 500 mg PEG BID [facility] Last Admin: 10/08/18 09:45 Dose: 500 mg Memantine (Namenda) 5 mg PEG BID [facility] Last Admin: 10/08/18 09:42 Dose: 5 mg Metoprolol Tartrate (Lopressor) 25 mg PEG BID [facility] Last Admin: 10/08/18 09:39 Dose: 25 mg Mirtazapine (Remeron) 15 mg PEG HS [facility] Last Admin: 10/07/18 21:33 Dose: 15 mg Multivitamins/Vitamin C (Multi-Delyn Liquid) 5 ml PEG DAILY [facility] Last Admin: 10/08/18 09:45 Dose: 5 ml Potassium Chloride (Potassium Chloride Oral Soln) 20 meq PO DAILY [facility] Stop: 10/09/18 10:01 Last Admin: 10/08/18 09:43 Dose: 20 meq - Labs Labs: 10/05/18 07:12 10/06/18 07:49 PT 12.2 SECONDS (9.7-12.2) 10/04/18 18:25 INR 1.1 10/04/18 18:25 APTT 28 SECONDS (21-34) 10/04/18 18:25 - Constitutional Appears: No Acute Distress, Cachectic, Chronically Ill - Head Exam Head Exam: NORMAL INSPECTION - Eye Exam Eye Exam: EOMI, PERRL - ENT Exam ENT Exam: Normal Oropharynx - Neck Exam Neck Exam: Normal Inspection - Respiratory Exam Respiratory Exam: Rhonchi (RT SIDED), NORMAL BREATHING PATTERN - Cardiovascular Exam Cardiovascular Exam: REGULAR RHYTHM, +S1, +S2 - GI/Abdominal Exam GI & Abdominal Exam: Soft, Normal Bowel Sounds (+VE PEG) - Extremities Exam Extremities Exam: absent: Calf Tenderness, Pedal Edema - Neurological Exam Neurological Exam: Awake - Psychiatric Exam Psychiatric exam: Flat Affect - Skin Skin Exam: Normal Color, Warm Assessment and Plan (1) Pneumonia Assessment & Plan: SPUTUM gRAM STAIN AND CULTURE P CONTINUE iv zOSYN 2.25 IVPB EVERY 6 HOURLY 10/04/18. CONTINUE iv VANCOMYCIN 1 G EVERY 24 HOURLY 10/04/18. F/U vANCO TROUGH LEVEL PRIOR TO THE FOURTH DOSE. aND KEEP BETWEEN 10 AND 20 MG/l. fOLLOW-UP RENAL FUNCTIONS CLOSELY. F/U CXR ON TUESDAY pULMONARY TOILET. Status: Acute (2) G tube feedings Status: Acute (3) Depression Status: Chronic (4) Dysarthria due to cerebrovascular accident (CVA) Status: Chronic (5) HTN (hypertension) Status: Chronic (6) Hypernatremia Status: Acute (7) Acute renal insufficiency Status: Acute
--- NOTE | 2018-10-08 13:04 | CP.PCM.PN ---
Subjective - Date & Time of Evaluation Date of Evaluation: 10/08/18 Time of Evaluation: 13:01 - Subjective Subjective: PT AWAKE., NO DISTRESS./ ROS; UNOBTAINABLE. Objective - Vital Signs/Intake and Output Vital Signs (last 24 hours): Temp Pulse Resp BP Pulse Ox 98.6 F 86 20 110/70 96 10/08/18 08:07 10/08/18 10:00 10/08/18 08:07 10/08/18 09:41 10/08/18 08:07 Intake and Output: 10/08/18 10/08/18 06:59 18:59 Intake Total 920 Output Total 1150 Balance -230 - Medications Medications: Current Medications Acetaminophen (Tylenol 650mg/20.3ml Solution Ud) 325 mg PEG Q6 PRN PRN Reason: Pain, moderate (4-7) Aspirin (Aspirin Chewable) 81 mg PEG DAILY [facility] Last Admin: 10/08/18 09:42 Dose: 81 mg Emollient Ointment (Vaseline Oint) 5 gm TOP Q12H PRN PRN Reason: Dry skin Last Admin: 10/07/18 10:22 Dose: 5 gm Enoxaparin Sodium (Lovenox) 40 mg SC DAILY [facility] Last Admin: 10/08/18 09:38 Dose: 40 mg Ferrous Sulfate (Feosol Liq) 300 mg PO TID [facility] Last Admin: 10/08/18 09:38 Dose: 300 mg Furosemide (Lasix) 40 mg PEG DAILY [facility] Last Admin: 10/08/18 09:41 Dose: Not Given Vancomycin HCl 1 gm/ Sodium (Chloride) 250 mls @ 167 mls/hr IVPB Q24H [facility]; Protocol Last Admin: 10/07/18 17:59 Dose: 167 mls/hr Piperacillin Sod/Tazobactam Sod (Zosyn 2.25 Gm Iv Premix) 2.25 gm in 50 mls @ 100 mls/hr IVPB Q6 [facility]; Protocol Last Admin: 10/08/18 11:04 Dose: 100 mls/hr Dextrose/Sodium Chloride (Dextrose 5%/0.45% Ns 1000 Ml) 1,000 mls @ 75 mls/hr IV .[id number] [facility] Last Admin: 10/08/18 07:00 Dose: 75 mls/hr Levetiracetam (Keppra) 500 mg PEG BID [facility] Last Admin: 10/08/18 09:45 Dose: 500 mg Memantine (Namenda) 5 mg PEG BID [facility] Last Admin: 10/08/18 09:42 Dose: 5 mg Metoprolol Tartrate (Lopressor) 25 mg PEG BID [facility] Last Admin: 10/08/18 09:39 Dose: 25 mg Mirtazapine (Remeron) 15 mg PEG HS [facility] Last Admin: 10/07/18 21:33 Dose: 15 mg Multivitamins/Vitamin C (Multi-Delyn Liquid) 5 ml PEG DAILY [facility] Last Admin: 10/08/18 09:45 Dose: 5 ml Potassium Chloride (Potassium Chloride Oral Soln) 20 meq PO DAILY [facility] Stop: 10/09/18 10:01 Last Admin: 10/08/18 09:43 Dose: 20 meq - Labs Labs: 10/05/18 07:12 10/06/18 07:49 PT 12.2 SECONDS (9.7-12.2) 10/04/18 18:25 INR 1.1 10/04/18 18:25 APTT 28 SECONDS (21-34) 10/04/18 18:25 - Constitutional Appears: No Acute Distress, Cachectic, Chronically Ill - Head Exam Head Exam: ATRAUMATIC, NORMOCEPHALIC - Eye Exam Eye Exam: EOMI, Normal appearance - ENT Exam ENT Exam: Mucous Membranes Moist - Neck Exam Neck Exam: Normal Inspection - Respiratory Exam Respiratory Exam: Decreased Breath Sounds - Cardiovascular Exam Cardiovascular Exam: RRR, +S1, +S2 - GI/Abdominal Exam GI & Abdominal Exam: Soft Additional comments: PEG - Rectal Exam Rectal Exam: Deferred - Extremities Exam Extremities Exam: absent: Calf Tenderness, Pedal Edema - Back Exam Back Exam: absent: CVA tenderness (L), CVA tenderness (R) - Neurological Exam Neurological Exam: Awake Additional comments: RIGHT KENNEDI., DYSATHRIC - Skin Skin Exam: absent: Rash Assessment and Plan (1) Anemia Status: Acute (2) Right hemiplegia Status: Acute (3) Anxiety Status: Acute (4) Seizure Status: Acute (5) Acute renal insufficiency Status: Acute (6) Pneumonia Status: Acute (7) Dysarthria due to cerebrovascular accident (CVA) Status: Chronic (8) HTN (hypertension) Status: Chronic - Assessment and Plan (Free Text) Assessment: RESP STATUS NO SIG CHANGE., CONT NEB BD., PULM TOILET., MONITOR O2 SAT. CXR REVIEWED. AFEBRILE ON AB. CONT PEG FEEDINGS. PROG POOR. DNR/DNI. DISCUSSED WITH STAFF .
[2018-10-08 16:57] LABS: BASO % 0.5 % (0.0-2.0); EOS # 0.2 K/uL (0.0-0.7); EOS % 2.4 % (0.0-4.0); HEMOGLOBIN 10.9 g/dL (11.0-16.0); LYMPH # 1.9 K/uL (1.0-4.3); LYMPH % 23.5 % (20.0-40.0); MEAN CORPUSCULAR HEMOGLOBIN 31.6 pg (27.0-31.0); MEAN PLATELET VOLUME 11.8 fL (7.2-11.7); MONO # 0.4 K/uL (0.0-0.8); MONO % 5.3 % (0.0-10.0); NEUT # 5.5 K/uL (1.8-7.0); NEUT % 68.3 % (50.0-75.0); RBC 3.45 Mil/uL (3.80-5.20); RED CELL DISTRIBUTION WIDTH 12.9 % (11.5-14.5); WHITE BLOOD COUNT 8.1 K/uL (4.8-10.8)
[2018-10-08 17:17] LABS: BLOOD UREA NITROGEN 8 mg/dL (7-17); CALCIUM 9.2 mg/dl (8.6-10.4); GFR NON-AFRICAN AMERICAN > 60
--- NOTE | 2018-10-08 20:05 | CARD ---
APPROVED REPORT Date of service: 10/04/2018 EKG Measurement Heart [id number] <Conclusion> Sinus tachycardia Possible Left atrial enlargement T wave abnormality, consider inferior ischemia Abnormal ECG
[2018-10-09 00:01] VITALS: RESP 20
[2018-10-09] MEDS: Piperacill/Tazo 2.25gm in Dex 2.25 GM/50 ML BAG IVPB SCH ×2 (06:00→12:26)
--- NOTE | 2018-10-09 09:09 | CP.PCM.PN ---
Subjective - Date & Time of Evaluation Date of Evaluation: 10/09/18 Time of Evaluation: 09:06 - Subjective Subjective: PT ALERT, NO DISTRESS. WEAK. ROS; UNOBTAINABLE Objective - Vital Signs/Intake and Output Vital Signs (last 24 hours): Temp Pulse Resp BP Pulse Ox 98.3 F 71 20 108/69 96 10/09/18 07:00 10/09/18 07:30 10/09/18 07:00 10/09/18 07:00 10/09/18 07:00 Intake and Output: 10/09/18 10/09/18 06:59 18:59 Intake Total 970 1340 Output Total 1300 Balance -330 1340 - Medications Medications: Current Medications Acetaminophen (Tylenol 650mg/20.3ml Solution Ud) 325 mg PEG Q6 PRN PRN Reason: Pain, moderate (4-7) Aspirin (Aspirin Chewable) 81 mg PEG DAILY [facility] Last Admin: 10/08/18 09:42 Dose: 81 mg Emollient Ointment (Vaseline Oint) 5 gm TOP Q12H PRN PRN Reason: Dry skin Last Admin: 10/07/18 10:22 Dose: 5 gm Enoxaparin Sodium (Lovenox) 40 mg SC DAILY [facility] Last Admin: 10/08/18 09:38 Dose: 40 mg Ferrous Sulfate (Feosol Liq) 300 mg PO TID [facility] Last Admin: 10/08/18 17:53 Dose: 300 mg Furosemide (Lasix) 40 mg PEG DAILY [facility] Last Admin: 10/08/18 09:41 Dose: Not Given Vancomycin HCl 1 gm/ Sodium (Chloride) 250 mls @ 167 mls/hr IVPB Q24H [facility]; Protocol Last Admin: 10/08/18 18:00 Dose: 167 mls/hr Piperacillin Sod/Tazobactam Sod (Zosyn 2.25 Gm Iv Premix) 2.25 gm in 50 mls @ 100 mls/hr IVPB Q6 [facility]; Protocol Last Admin: 10/09/18 06:00 Dose: 100 mls/hr Levetiracetam (Keppra) 500 mg PEG BID [facility] Last Admin: 10/08/18 17:52 Dose: 500 mg Memantine (Namenda) 5 mg PEG BID [facility] Last Admin: 10/08/18 17:52 Dose: 5 mg Metoprolol Tartrate (Lopressor) 25 mg PEG BID [facility] Last Admin: 10/08/18 17:53 Dose: 25 mg Mirtazapine (Remeron) 15 mg PEG HS [facility] Last Admin: 10/08/18 22:02 Dose: 15 mg Multivitamins/Vitamin C (Multi-Delyn Liquid) 5 ml PEG DAILY [facility] Last Admin: 10/08/18 09:45 Dose: 5 ml Potassium Chloride (Potassium Chloride Oral Soln) 20 meq PO DAILY [facility] Stop: 10/09/18 10:01 Last Admin: 10/08/18 09:43 Dose: 20 meq - Labs Labs: 10/08/18 16:44 10/08/18 16:44 PT 12.2 SECONDS (9.7-12.2) 10/04/18 18:25 INR 1.1 10/04/18 18:25 APTT 28 SECONDS (21-34) 10/04/18 18:25 - Constitutional Appears: Cachectic, Chronically Ill - Head Exam Head Exam: ATRAUMATIC, NORMOCEPHALIC - Eye Exam Eye Exam: EOMI, Normal appearance - ENT Exam ENT Exam: Mucous Membranes Moist - Neck Exam Neck Exam: Normal Inspection - Respiratory Exam Respiratory Exam: Decreased Breath Sounds. absent: Accessory Muscle Use - Cardiovascular Exam Cardiovascular Exam: RRR, +S1, +S2 - GI/Abdominal Exam GI & Abdominal Exam: Soft Additional comments: PEG - Rectal Exam Rectal Exam: Deferred - Extremities Exam Extremities Exam: absent: Calf Tenderness, Pedal Edema Additional comments: MUSLCE WASTING. RUE CONTRACTURE. - Back Exam Back Exam: absent: CVA tenderness (L), CVA tenderness (R) - Neurological Exam Neurological Exam: Awake Additional comments: RIGHT KENNEDI,. DYSARTHTRIA. - Skin Skin Exam: absent: Rash Assessment and Plan (1) Anemia Status: Acute (2) Right hemiplegia Status: Acute (3) Anxiety Status: Acute (4) Seizure Status: Acute (5) Acute renal insufficiency Status: Acute (6) Pneumonia Status: Acute (7) Dysarthria due to cerebrovascular accident (CVA) Status: Chronic (8) HTN (hypertension) Status: Chronic - Assessment and Plan (Free Text) Assessment: RESP STATUS UNLABORED. CONT PULM TOILET., ADEQ OXYGENATION., CXR REVIEWED. AFEBRILE ON AB. INCREASE OOB. PROG POOR. DISCUSSED WITH STAFF AT LENGTH., DNR/ DNI NOTED.
[2018-10-09] MEDS: Multiple Vitamins Oral Solution PEG SCH (10:02)
[2018-10-09] MEDS: Ferrous Sulfate 300 mg/5 mL Liq UD PO SCH ×3 (10:03→17:04)
[2018-10-09] MEDS: levETIRAcetam 100 mg/ml (5ml) Oral Syringe PEG SCH ×2 (10:03→17:04)
[2018-10-09] MEDS: Potassium Chloride 20 mEq/15 ml LIQ UD PO SCH (10:03)
[2018-10-09] MEDS: Enoxaparin 40 mg Syringe SC SCH (10:03)
--- NOTE | 2018-10-09 13:37 | CP.PCM.PN ---
Subjective - Date & Time of Evaluation Date of Evaluation: 10/09/18 - Subjective Subjective: Patient seen and examined today No nausea No vomiting No fever No diarrhea No dizziness No shortness of breath Objective - Vital Signs/Intake and Output Vital Signs (last 24 hours): Temp Pulse Resp BP Pulse Ox 98.3 F 71 20 98/67 L 96 10/09/18 07:00 10/09/18 07:30 10/09/18 07:00 10/09/18 10:03 10/09/18 07:00 Intake and Output: 10/09/18 10/09/18 06:59 18:59 Intake Total 970 1340 Output Total 1300 Balance -330 1340 - Medications Medications: Current Medications Acetaminophen (Tylenol 650mg/20.3ml Solution Ud) 325 mg PEG Q6 PRN PRN Reason: Pain, moderate (4-7) Aspirin (Aspirin Chewable) 81 mg PEG DAILY [facility] Last Admin: 10/09/18 10:02 Dose: 81 mg Emollient Ointment (Vaseline Oint) 5 gm TOP Q12H PRN PRN Reason: Dry skin Last Admin: 10/07/18 10:22 Dose: 5 gm Enoxaparin Sodium (Lovenox) 40 mg SC DAILY [facility] Last Admin: 10/09/18 10:03 Dose: 40 mg Ferrous Sulfate (Feosol Liq) 300 mg PO TID [facility] Last Admin: 10/09/18 13:26 Dose: 300 mg Furosemide (Lasix) 40 mg PEG DAILY [facility] Last Admin: 10/09/18 10:03 Dose: Not Given Vancomycin HCl 1 gm/ Sodium (Chloride) 250 mls @ 167 mls/hr IVPB Q24H [facility]; Protocol Last Admin: 10/08/18 18:00 Dose: 167 mls/hr Piperacillin Sod/Tazobactam Sod (Zosyn 2.25 Gm Iv Premix) 2.25 gm in 50 mls @ 100 mls/hr IVPB Q6 [facility]; Protocol Last Admin: 10/09/18 12:26 Dose: 100 mls/hr Levetiracetam (Keppra) 500 mg PEG BID [facility] Last Admin: 10/09/18 10:03 Dose: 500 mg Memantine (Namenda) 5 mg PEG BID [facility] Last Admin: 10/09/18 10:03 Dose: 5 mg Metoprolol Tartrate (Lopressor) 25 mg PEG BID [facility] Last Admin: 10/09/18 10:03 Dose: Not Given Mirtazapine (Remeron) 15 mg PEG HS [facility] Last Admin: 10/08/18 22:02 Dose: 15 mg Multivitamins/Vitamin C (Multi-Delyn Liquid) 5 ml PEG DAILY [facility] Last Admin: 10/09/18 10:02 Dose: 5 ml - Labs Labs: 10/08/18 16:44 10/08/18 16:44 PT 12.2 SECONDS (9.7-12.2) 10/04/18 18:25 INR 1.1 10/04/18 18:25 APTT 28 SECONDS (21-34) 10/04/18 18:25 - Constitutional Appears: Well - Head Exam Head Exam: ATRAUMATIC, NORMAL INSPECTION, NORMOCEPHALIC - Eye Exam Eye Exam: EOMI, Normal appearance, PERRL Pupil Exam: NORMAL ACCOMODATION, PERRL - ENT Exam ENT Exam: Mucous Membranes Moist, Normal Exam - Neck Exam Neck Exam: Full ROM, Normal Inspection. absent: Lymphadenopathy - Respiratory Exam Respiratory Exam: Decreased Breath Sounds - Cardiovascular Exam Cardiovascular Exam: REGULAR RHYTHM, +S1, +S2 - GI/Abdominal Exam GI & Abdominal Exam: Soft, Diminished Bowel Sounds - Rectal Exam Rectal Exam: Deferred Assessment and Plan - Assessment and Plan (Free Text) Plan: medications reviewed labs reviewed vitals reviewed
--- NOTE | 2018-10-09 13:59 | CP.PCM.PN ---
Subjective - Date & Time of Evaluation Date of Evaluation: 10/09/18 Time of Evaluation: 13:59 - Subjective Subjective: AFEBRILE, VSS AWAKE , WEAK ON IV ABX LABS REVIEWED; VANCO TROUGH LOW 6.0 ? CASE DISCUSSED W [employer] MR BLAKE F/U CXR STAT PLAN TO DECIDE AFTER CXR REPORT Objective - Vital Signs/Intake and Output Vital Signs (last 24 hours): Temp Pulse Resp BP Pulse Ox 98.3 F 71 20 98/67 L 96 10/09/18 07:00 10/09/18 07:30 10/09/18 07:00 10/09/18 10:03 10/09/18 07:00 Intake and Output: 10/09/18 10/09/18 06:59 18:59 Intake Total 970 1340 Output Total 1300 Balance -330 1340 - Medications Medications: Current Medications Acetaminophen (Tylenol 650mg/20.3ml Solution Ud) 325 mg PEG Q6 PRN PRN Reason: Pain, moderate (4-7) Aspirin (Aspirin Chewable) 81 mg PEG DAILY [facility] Last Admin: 10/09/18 10:02 Dose: 81 mg Emollient Ointment (Vaseline Oint) 5 gm TOP Q12H PRN PRN Reason: Dry skin Last Admin: 10/07/18 10:22 Dose: 5 gm Enoxaparin Sodium (Lovenox) 40 mg SC DAILY [facility] Last Admin: 10/09/18 10:03 Dose: 40 mg Ferrous Sulfate (Feosol Liq) 300 mg PO TID [facility] Last Admin: 10/09/18 13:26 Dose: 300 mg Furosemide (Lasix) 40 mg PEG DAILY [facility] Last Admin: 10/09/18 10:03 Dose: Not Given Vancomycin HCl 1 gm/ Sodium (Chloride) 250 mls @ 167 mls/hr IVPB Q24H [facility]; Protocol Last Admin: 10/08/18 18:00 Dose: 167 mls/hr Piperacillin Sod/Tazobactam Sod (Zosyn 2.25 Gm Iv Premix) 2.25 gm in 50 mls @ 100 mls/hr IVPB Q6 [facility]; Protocol Last Admin: 10/09/18 12:26 Dose: 100 mls/hr Levetiracetam (Keppra) 500 mg PEG BID [facility] Last Admin: 10/09/18 10:03 Dose: 500 mg Memantine (Namenda) 5 mg PEG BID [facility] Last Admin: 10/09/18 10:03 Dose: 5 mg Metoprolol Tartrate (Lopressor) 25 mg PEG BID [facility] Last Admin: 10/09/18 10:03 Dose: Not Given Mirtazapine (Remeron) 15 mg PEG HS [facility] Last Admin: 10/08/18 22:02 Dose: 15 mg Multivitamins/Vitamin C (Multi-Delyn Liquid) 5 ml PEG DAILY [facility] Last Admin: 10/09/18 10:02 Dose: 5 ml - Labs Labs: 10/08/18 16:44 10/08/18 16:44 PT 12.2 SECONDS (9.7-12.2) 10/04/18 18:25 INR 1.1 10/04/18 18:25 APTT 28 SECONDS (21-34) 10/04/18 18:25 - Constitutional Appears: No Acute Distress, Confused, Cachectic, Chronically Ill - Head Exam Head Exam: NORMAL INSPECTION - Eye Exam Eye Exam: EOMI, PERRL. absent: Scleral icterus - ENT Exam ENT Exam: Normal Oropharynx - Neck Exam Neck Exam: Normal Inspection - Respiratory Exam Respiratory Exam: Decreased Breath Sounds, NORMAL BREATHING PATTERN - Cardiovascular Exam Cardiovascular Exam: REGULAR RHYTHM, +S1, +S2 - GI/Abdominal Exam GI & Abdominal Exam: Soft, Normal Bowel Sounds (+VE PEG.) - Extremities Exam Extremities Exam: absent: Calf Tenderness, Pedal Edema - Neurological Exam Neurological Exam: Awake, CN II-XII Intact - Psychiatric Exam Psychiatric exam: Normal Affect - Skin Skin Exam: Normal Color, Warm Assessment and Plan (1) Pneumonia Status: Acute (2) G tube feedings Status: Acute (3) Depression Status: Chronic (4) Dysarthria due to cerebrovascular accident (CVA) Status: Chronic (5) HTN (hypertension) Status: Chronic (6) Hypernatremia Status: Acute (7) Acute renal insufficiency Status: Acute - Assessment and Plan (Free Text) Plan: CONTINUE iv zOSYN 2.25 IVPB EVERY 6 HOURLY 10/04/18. CONTINUE iv VANCOMYCIN 1 G EVERY 24 HOURLY 10/04/18. fOLLOW-UP RENAL FUNCTIONS CLOSELY. F/U CXR ON TUESDAY TO DECIDE FURTHER RX CASE DISCUSSED WITH TRAM DARDEN NP. pULMONARY TOILET.
--- NOTE | 2018-10-09 15:46 | CP.PCM.PN ---
Subjective - Date & Time of Evaluation Date of Evaluation: 10/09/18 Time of Evaluation: 15:46 - Subjective Subjective: PATIENT SEEN AND EXAMINED AT THE BEDSIDE Objective - Vital Signs/Intake and Output Vital Signs (last 24 hours): Temp Pulse Resp BP Pulse Ox 98.3 F 71 20 98/67 L 96 10/09/18 07:00 10/09/18 07:30 10/09/18 07:00 10/09/18 10:03 10/09/18 07:00 Intake and Output: 10/09/18 10/09/18 06:59 18:59 Intake Total 970 2420 Output Total 1300 600 Balance -330 1820 - Medications Medications: Current Medications Acetaminophen (Tylenol 650mg/20.3ml Solution Ud) 325 mg PEG Q6 PRN PRN Reason: Pain, moderate (4-7) Aspirin (Aspirin Chewable) 81 mg PEG DAILY [facility] Last Admin: 10/09/18 10:02 Dose: 81 mg Emollient Ointment (Vaseline Oint) 5 gm TOP Q12H PRN PRN Reason: Dry skin Last Admin: 10/07/18 10:22 Dose: 5 gm Enoxaparin Sodium (Lovenox) 40 mg SC DAILY [facility] Last Admin: 10/09/18 10:03 Dose: 40 mg Ferrous Sulfate (Feosol Liq) 300 mg PO TID [facility] Last Admin: 10/09/18 13:26 Dose: 300 mg Furosemide (Lasix) 40 mg PEG DAILY [facility] Last Admin: 10/09/18 10:03 Dose: Not Given Vancomycin HCl 1 gm/ Sodium (Chloride) 250 mls @ 167 mls/hr IVPB Q24H [facility]; Protocol Last Admin: 10/08/18 18:00 Dose: 167 mls/hr Piperacillin Sod/Tazobactam Sod (Zosyn 2.25 Gm Iv Premix) 2.25 gm in 50 mls @ 100 mls/hr IVPB Q8H [facility]; Protocol Levetiracetam (Keppra) 500 mg PEG BID [facility] Last Admin: 10/09/18 10:03 Dose: 500 mg Memantine (Namenda) 5 mg PEG BID [facility] Last Admin: 10/09/18 10:03 Dose: 5 mg Metoprolol Tartrate (Lopressor) 25 mg PEG BID [facility] Last Admin: 04/08/19 10:03 Dose: Not Given Mirtazapine (Remeron) 15 mg PEG HS [facility] Last Admin: 10/08/18 22:02 Dose: 15 mg Multivitamins/Vitamin C (Multi-Delyn Liquid) 5 ml PEG DAILY [facility] Last Admin: 10/09/18 10:02 Dose: 5 ml - Labs Labs: 10/08/18 16:44 10/08/18 16:44 PT 12.2 SECONDS (9.7-12.2) 10/04/18 18:25 INR 1.1 10/04/18 18:25 APTT 28 SECONDS (21-34) 10/04/18 18:25 Assessment and Plan - Assessment and Plan (Free Text) Assessment: FOLLOW UP WITH DR Steven TARANGO IN HIS OFFICE -----CALL FOR APPOINTMENT CONTINUE HOME MEDICATION NEW PRESCRIPTION ROCEPHIN 1 G IVPB FOR 5 DAYS ACTIVITY TOLERATED CALL DR Steven TARANGO OR GO TO THE EMERGENCY ROOM IF SYMPTOM RETURN OR WORSENING
[2018-10-09 15:47] VITALS: PULSE 77; TEMP 97.7; O2SAT 95
[2018-10-09 17:08] VITALS: BP 114/78
--- NOTE | 2018-10-09 17:31 | RAD ---
Date of service: 10/09/2018 PROCEDURE: CHEST RADIOGRAPH, 1 VIEW HISTORY: f/u COMPARISON: 10/04/2018. FINDINGS: LUNGS: Clear. PLEURA: No pneumothorax or pleural fluid seen. CARDIOVASCULAR: No aortic atherosclerotic calcification present. Normal. OSSEOUS STRUCTURES: No significant abnormalities. VISUALIZED UPPER ABDOMEN: Distended stomach of uncertain etiology/significance. OTHER FINDINGS: None. IMPRESSION: No active disease.
[2018-10-09] MEDS ORDERED: Piperacill/Tazo 2.25gm in Dex 2.25 GM/50 ML BAG IVPB SCH ×2 (20:26→20:30)
--- NOTE | 2018-10-09 21:35 | CP.PCM.DIS ---
Provider - Provider Date of Admission: 10/04/18 18:58 Attending physician: Johnson Arechiga MD Consults: 10/04/18 21:52 Pulmonology Consult Routine Comment: Consulting Provider: Jae Sterling Consulting Physician: Jae Sterling Reason for Consult: resp distress 10/04/18 22:03 Infectious Disease Consult Routine Comment: Consulting Provider: Carlos Crocker Consulting Physician: Carlos Crocker Reason for Consult: severe sepsis 10/05/18 01:12 Social Work Referral Routine Comment: see pt Physician Instructions: see pt Reason For Exam: mark score 20 10/05/18 01:13 Nursing Referral for Palliative Care Routine Comment: see pt Physician Instructions: see pt Reason For Exam: pt POLST in chart DNR/DNI 10/05/18 01:26 Inpatient [employer] Core Measures Referral Routine Comment: Physician Instructions: Reason For Exam: c/o sob Nursing Referral for Wound Care Routine Comment: Physician Instructions: Reason For Exam: sacral redness 10/05/18 09:06 Palliative Care Consult Routine Comment: Consulting Provider: Brittney Metcalf Physician Instructions: TO MD Arechiga Reason For Exam: Discussing POLST Time Spent in preparation of Discharge (in minutes): 20 Hospital Course - Lab Results Lab Results: Micro Results 10/04/18 18:25 Blood Blood Culture - Final NO GROWTH AFTER 5 DAYS 10/04/18 18:25 Blood Gram Stain - Final TEST NOT PERFORMED 10/04/18 17:55 Blood Blood Culture - Final NO GROWTH AFTER 5 DAYS 10/04/18 17:55 Blood Gram Stain - Final TEST NOT PERFORMED 10/04/18 18:25 Urine,Catheterized Urine Culture - Final No Growth (<1,000 CFU/ML) Most Recent Lab Values WBC 8.1 K/uL (4.8-10.8) 10/08/18 16:44 RBC 3.45 Mil/uL (3.80-5.20) L 10/08/18 16:44 Hgb 10.9 g/dL (11.0-16.0) L 10/08/18 16:44 Hct 32.1 % (34.0-47.0) L 10/08/18 16:44 MCV 93.0 fL (81.0-99.0) D 10/08/18 16:44 MCH 31.6 pg (27.0-31.0) H 10/08/18 16:44 MCHC 34.0 g/dL (33.0-37.0) 10/08/18 16:44 RDW 12.9 % (11.5-14.5) 10/08/18 16:44 Plt Count 97 K/uL (130-400) L 10/08/18 16:44 MPV 11.8 fL (7.2-11.7) H 10/08/18 16:44 Neut % (Auto) 68.3 % (50.0-75.0) 10/08/18 16:44 Lymph % (Auto) 23.5 % (20.0-40.0) 10/08/18 16:44 Dale % (Auto) 5.3 % (0.0-10.0) 10/08/18 16:44 Eos % (Auto) 2.4 % (0.0-4.0) 10/08/18 16:44 Baso % (Auto) 0.5 % (0.0-2.0) 10/08/18 16:44 Neut # (Auto) 5.5 K/uL (1.8-7.0) 10/08/18 16:44 Lymph # (Auto) 1.9 K/uL (1.0-4.3) 10/08/18 16:44 Dale # (Auto) 0.4 K/uL (0.0-0.8) 10/08/18 16:44 Eos # (Auto) 0.2 K/uL (0.0-0.7) 10/08/18 16:44 Baso # (Auto) 0.0 K/uL (0.0-0.2) 10/08/18 16:44 Differential Comment 10/08/18 16:44 PT 12.2 SECONDS (9.7-12.2) 10/04/18 18:25 INR 1.1 10/04/18 18:25 APTT 28 SECONDS (21-34) 10/04/18 18:25 pO2 62 mm/Hg (30-55) H 10/04/18 21:45 VBG pH 7.46 (7.32-7.43) H 10/04/18 21:45 VBG pCO2 47 mmHg (40-60) 10/04/18 21:45 VBG HCO3 31.3 mmol/L 10/04/18 21:45 VBG Total CO2 34.8 mmol/L (22-28) H 10/04/18 21:45 VBG O2 Sat (Calc) 94.4 % (40-65) H 10/04/18 21:45 VBG Base Excess 8.3 mmol/L (0.0-2.0) H 10/04/18 21:45 VBG Potassium 2.4 mmol/L (3.6-5.2) L* 10/04/18 21:45 Sodium 154.0 mmol/l (132-148) H 10/04/18 21:45 Chloride 116.0 mmol/L (98-107) H 10/04/18 21:45 Glucose 92 mg/dl (65-105) 10/04/18 21:45 Lactate 1.1 mmol/L (0.7-2.1) 10/04/18 21:45 FiO2 21.0 % 10/04/18 21:45 Crit Value Called To Dr arechiga 10/04/18 21:45 Crit Value Called By [facility] 10/04/18 21:45 Crit Value Read Back Y 10/04/18 21:45 Blood Gas Notified Time 214810/04/18 21:45 Sodium 140 mmol/L (132-148) 10/08/18 16:44 Potassium 4.1 mmol/L (3.6-5.2) 10/08/18 16:44 Chloride 112 mmol/L (98-107) H 10/08/18 16:44 Carbon Dioxide 22 mmol/L (22-30) 10/08/18 16:44 Anion Gap 9 (10-20) L 10/08/18 16:44 BUN 8 mg/dL (7-17) 10/08/18 16:44 Creatinine 0.5 mg/dL (0.7-1.2) L 10/08/18 16:44 Est GFR ( Amer) > 60 10/08/18 16:44 Est GFR (Non-Af Amer) > 60 10/08/18 16:44 POC Glucose (mg/dL) 129 mg/dL (65-110) H 10/08/18 20:56 Random Glucose 116 mg/dL (65-105) H 10/08/18 16:44 Calcium 9.2 mg/dl (8.6-10.4) 10/08/18 16:44 Phosphorus 5.1 mg/dL (2.5-4.5) H 10/04/18 18:25 Magnesium 2.6 mg/dL (1.6-2.3) H 10/05/18 07:12 Total Bilirubin 0.9 mg/dL (0.2-1.3) 10/05/18 07:12 AST 34 U/L (14-36) 10/05/18 07:12 ALT 112 U/L (9-52) H D 10/05/18 07:12 Alkaline Phosphatase 63 U/L (38-126) 10/05/18 07:12 Total Protein 6.2 g/dL (6.3-8.3) L 10/05/18 07:12 Albumin 3.4 g/dL (3.5-5.0) L D 10/05/18 07:12 Globulin 2.7 gm/dL (2.2-3.9) 10/05/18 07:12 Albumin/Globulin Ratio 1.2 (1.0-2.1) 10/05/18 07:12 Venous Blood Potassium 2.4 mmol/L (3.6-5.2) L* 10/04/18 21:45 Vancomycin Trough 6.0 ug/mL (5.0-10.0) 10/08/18 16:44 Influenza Typ A,B (EIA) Negative for flu a/b (NEGATIVE) 10/04/18 18:45 Discharge Exam - Head Exam Head Exam: NORMAL INSPECTION Discharge Plan - Discharge Medications Prescriptions: cefTRIAXone 1 gm [Rocephin 1 gram IVPB] 1 gm IVPB DAILY 5 Days bag - Follow Up Plan Condition: GUARDED Disposition: REHAB FACILITY/REHAB UNIT Instructions: Pneumonia, Adult (DC), Ceftriaxone Additional Instructions: FOLLOW UP WITH DR Steven ARECHIGA IN HIS OFFICE -----CALL FOR APPOINTMENT CONTINUE HOME MEDICATION NEW PRESCRIPTION ROCEPHIN 1 G IVPB FOR 5 DAYS ACTIVITY TOLERATED CALL DR Steven ARECHIGA OR GO TO THE EMERGENCY ROOM IF SYMPTOM RETURN OR WORSENING Referrals: Carlos Crocker MD [Staff Provider] - Yakov Arechiga MD [Staff Provider] - Jae Sterling MD [Staff Provider] -
== END 2018-10-09 19:35 | DRG 194 ==
LOC: C.ER 17:12 → C.9E 18:58 → C.5S 21:41
PROVIDERS: ADMIT Internal Medicine Nephrology; ATTEND Internal Medicine Nephrology
PROC: 3E0G76Z Introduction of Nutritional Substance into Upper GI, Via Natural or Artificial Opening (ICD-10-PCS; principal; 2018-10-04)
DX: J18.9 Pneumonia, unspecified organism (principal); E86.0 Dehydration; N28.9 Disorder of kidney and ureter, unspecified; I69.351 Hemiplegia and hemiparesis following cerebral infarction affecting right dominant side; E87.0 Hyperosmolality and hypernatremia; K94.23 Gastrostomy malfunction; I10 Essential (primary) hypertension; E78.5 Hyperlipidemia, unspecified; D64.9 Anemia, unspecified; R56.9 Unspecified convulsions; F03.90 Unspecified dementia, unspecified severity, without behavioral disturbance, psychotic disturbance, mood disturbance, and anxiety; F32.9 Major depressive disorder, single episode, unspecified; F41.9 Anxiety disorder, unspecified; E78.00 Pure hypercholesterolemia, unspecified; Z66 Do not resuscitate; I69.322 Dysarthria following cerebral infarction; Z93.1 Gastrostomy status